=== PATIENT | female | born 1960 | race Caucasian/White ===

== ENCOUNTER 2017-04-06 00:11 | Observation (INO) ==
[2017-04-06] MEDS ORDERED: 0.9 % Sodium Chloride 1,000 ML IVC ONE (00:55)
[2017-04-06] MEDS ORDERED: Ondansetron 4 MG/2 ML VIAL IVP ONE (00:55)
[2017-04-06] MEDS ORDERED: *HR* Morphine 2 MG/ML SYRINGE IVP ONE (00:55)
--- NOTE | 2017-04-06 00:59 | Emergency Department Note ---
Disposition Clinical Impression: History of hiatal hernia Abdominal pain Qualifiers: Abdominal location: epigastric Qualified Code(s): R10.13 - Epigastric pain Chest pain Qualifiers: Chest pain type: unspecified Qualified Code(s): R07.9 - Chest pain, unspecified Disposition: Admitted As Inpatient Condition: Fair Abdominal Pain HPI - General Chief Complaint: ED Abdominal Pain Stated Complaint: abd pain// shortness of breath Time Seen by Provider: 04/06/17 00:45 Source: patient Mode of arrival: ambulatory Limitations: no limitations Nursing Notes Reviewed: Yes Vital Signs Reviewed: Yes - History of Present Illness HPI Narrative: 57 YO old female history of hypertension hyperlipidemia hiatal hernia presents for evaluation of epigastric abdominal pain. Notes that the pain started abruptly around 9:00 to 11:00 this evening. Notes that the pain has subsided since then. Patient thought it was her hernia. Patient noted some shortness of breath but correspond with the pain. Also has some midsternal chest pain. Patient's shortness breath has improved. No nausea or vomiting. No history of pancreatitis. No history of ulcers. No diarrhea or constipation. Patient does have a history of chronic back pain and notes pain in her back. Patient is status post ablation by [place] in her back and is recently off steroids. Patient also has been treating for a urinary tract infection. Pt Subjective Complaint: abdominal pain Onset (ago): day(s) Consistency: intermittent Pain Scale: 6 - Related Data Home Medications Medication Instructions Recorded Confirmed Acetaminophen [Tylenol] 500 mg PO Q6HR PRN 06/25/16 06/25/16 Amlodipine [Norvasc] 5 mg PO DAILY 06/25/16 06/25/16 Atorvastatin Calcium [Lipitor] 20 mg PO HS 06/25/16 06/25/16 Cyclobenzaprine [Flexeril] 5 - 10 mg PO HS 06/25/16 06/25/16 Diazepam [Valium] 10 mg PO BID 06/25/16 06/25/16 FLUoxetine HCl [Prozac] 80 mg PO DAILY 06/25/16 06/25/16 Hydrochlorothiazide 25 mg PO DAILY 06/25/16 06/25/16 Lisinopril [Zestril] 40 mg PO BID 06/25/16 06/25/16 Metoprolol XL (24 HR) Succ [Toprol 50 mg PO DAILY 06/25/16 06/25/16 XL] Omeprazole [PriLOSEC] 40 mg PO DAILY 06/25/16 06/25/16 Ranitidine HCl [Zantac] 150 mg PO BID PRN 06/25/16 06/25/16 Previous Rx's Medication Instructions Recorded Oxycodone HCl/Acetaminophen 1 each PO Q6H PRN #15 tablet 06/25/16 [Percocet 5-325 mg Tablet] Allergies Allergy/AdvReac Type Severity Reaction Status Date / Time codeine Allergy Palpitation Verified 06/25/16 07:56 s All systems ED: reviewed and negative except as stated. Constitutional: Reports: as per HPI. Denies: fever Eyes: Reports: as per HPI ENT ED: Reports: as per HPI Cardiovascular: Reports: as per HPI Respiratory: Reports: as per HPI Gastrointestinal: Reports: as per HPI, abdominal pain. Denies: nausea, vomiting Genitourinary: Reports: as per HPI Musculoskeletal: Reports: as per HPI Integumentary: Reports: as per HPI Neurological: Reports: as per HPI Psychiatric: Reports: as per HPI, anxiety Endocrine: Reports: as per HPI Hematological/Lymphatic: Reports: as per HPI Abdominal Pain PMH - Past Medical History Medical history: Reports: arthritis, GERD, hyperlipidemia, hypertension Female Surgical History: Reports: other Psychiatric history: Reports: anxiety, depression - Social History Smoking status: Never smoker Alcohol use: Reports: none Drug use: Reports: none Physical Exam - General Limitations: no limitations General appearance: alert, in no apparent distress - Head Head exam: atraumatic, normocephalic, normal inspection - Eye Eye exam: Present: normal appearance, EOMI - ENT ENT exam: normal exam, mucous membranes moist - Neck Neck exam: Present: normal inspection, trachea midline - Chest Chest inspection: Present: normal inspection, symmetric chest wall rise - Respiratory Respiratory exam: Present: normal lung sounds bilaterally. Absent: respiratory distress - Cardiovascular Cardiovascular exam: Present: regular rate, normal rhythm - Abdominal Exam Abdominal exam: Present: soft, Non-Tender. Absent: guarding, rebound - Extremities Exam Extremities exam: Present: normal inspection. Absent: pedal edema - Back Exam Back exam: Present: normal inspection. Absent: CVA tenderness (R), CVA tenderness (L) - Neurological Exam Neurological exam: Present: alert, oriented X3 - Skin Skin exam: Present: warm, dry, intact, normal color Course Course Narrative: seem examined. Patient's in no acute distress. Patient appears to be resting comfortably. Patient will get basic lab work including cardiac screening evaluation with a troponin, EKG, chest x-ray. - Reevaluation(s) Reevaluation #1: Patient seen and examined. Notes the chest pressure is back. Patient refused asprin. Time: 02:41 Reevaluation #2: Patient seen and examined. Patient initially noted that the second nitroglycerin did temporarily relieve her pain. Patient's getting a GI cocktail. Time: 03:15 Vital Signs Temperature 97.5 F L 04/06/17 00:13 Pulse Rate 56 04/06/17 00:13 Respiratory Rate 16 04/06/17 00:13 Blood Pressure 161/80 04/06/17 00:13 O2 Sat by Pulse Oximetry 99 04/06/17 00:13 Temperature 97.5 F L 04/06/17 00:13 Pulse Rate 53 04/06/17 03:15 Respiratory Rate 16 04/06/17 03:39 Blood Pressure 122/68 04/06/17 03:39 O2 Sat by Pulse Oximetry 96 04/06/17 03:15 Oxygen Delivery Oxygen Delivery Room Air Abdominal Pain - MDM Narrative Medical decision making narrative: 57 yo female with a history of tobacco use in the past, hypertension, hyperlipidemia presents for evaluation of epigastric abdominal pain as well as shortness of breath. Patient notes the pain was abrupt in onset and occurred about 9 to 11:00 tonight. Patient's pain did subside prior to presentation of the ER. Patient had nonischemic EKG as well as negative troponin. Patient then began to feel more chest pressure. Patient states that morphine does not help with her pain and requested Dilaudid. Patient refused the aspirin. Patient was given nitroglycerin without relief. Patient also noted some shortness of breath the time of pain. Patient does not have risk factors for pulmonary embolism. No history of pulmonary embolism. No lower leg swelling. No recent travel. Patient's history was reviewed and shows no acute cardiopulmonary evaluation. Patient does have episode of hiatal hernia. Given the patient's risk factors and the fact that she has not complete symptom control emergency department. Patient received temporary relief after 2 nitroglycerin. The patient will be admitted to the hospital service for further evaluation and monitoring. - Lab Data Lab results reviewed: Yes I reviewed the patient's lab results. Result diagrams: 04/06/17 01:00 04/06/17 01:00 Lab Results 04/06/17 04/06/17 04/06/17 Range/Units 01:00 01:00 01:00 WBC 10.5 (4.3-11.1) K/mcL RBC 4.67 (3.82-4.97) M/mcL Hgb 13.4 (11.5-15.4) g/dL Hct 41.4 (35.3-44.9) % MCV 88.7 (83.0-100.0) fL MCH 28.7 (28.0-33.3) pg MCHC 32.4 (31.6-35.5) g/dL RDW 13.1 (11.5-14.5) % Plt Count 313 (140-400) K/mcL MPV 9.9 (9.4-12.4) fL Immature Gran % 0.6 (0-4) % Seg Neutrophils % 80.7 % Lymphocytes % 13.6 % Monocytes % 4.4 % Eosinophils % 0.2 % Basophils % 0.5 % Neutrophils # 8.4 (1.6-8.9) K/mcL Lymphocytes # 1.4 (0.6-4.6) K/mcL Monocytes # 0.5 (0.0-1.3) K/mcL Eosinophils # 0.0 (0.0-0.6) K/mcL Basophils # 0.1 (0.0-0.2) K/mcL Sodium 138 (136-145) mEq/L Potassium 4.2 (3.5-4.5) mEq/L Chloride 103 (98-109) mEq/L Carbon Dioxide 23 (19-29) mEq/L BUN 17 (7-20) mg/dL Creatinine 0.89 (0.57-1.11) mg/dL Est GFR ( Amer) > 60 (> 60) Est GFR (Non-Af Amer) > 60 (> 60) BUN/Creatinine Ratio 19 (6-26) Glucose 113 H (70-99) mg/dL Calculated Osmolality 288 (280-300) Lactic Acid 0.9 (0.5-2.2) mmol/L Calcium 10.8 (8.6-10.8) mg/dL Total Bilirubin 1.0 (0.2-1.2) mg/dL Direct Bilirubin 0.4 (0.0-0.5) mg/dL Indirect Bilirubin 0.6 (0.0-1.2) mg/dL AST 174 H (5-34) Units/L ALT 91 H (0-55) Units/L Alkaline Phosphatase 121 (38-126) Units/L Troponin I (0-0.03) ng/mL Serum Total Protein 7.5 (6.0-8.3) g/dL Albumin 4.0 (3.5-5.0) g/dL Globulin 3.5 (2.4-3.5) g/dL Albumin/Globulin Ratio 1.1 (1.1-2.2) Lipase 45 (8-78) Units/L Urine Color (Yellow) Urine Clarity (Clear) Urine pH (5.0-8.0) pH Units Ur Specific [place]ez (1.010-1.025) Urine Protein (Neg-Trace) mg/dL Urine Glucose (UA) (Normal) mg/dL Urine Ketones (Negative) mg/dL Urine Blood (Negative) Urine Nitrite (Negative) Urine Bilirubin (Negative) Urine Urobilinogen (Normal) mg/dL Ur Leukocyte Esterase (Negative) Urine Microscopic RBC (0-3) per hpf Urine Microscopic WBC (0-3) per hpf Ur Squamous Epith Cells (None-Few) per lpf Urine Bacteria (None-Few) per hpf Hyaline Casts (None-Few) per lpf Urine Yeast Ur Culture Indicated? (NO) 04/06/17 04/06/17 Range/Units 01:00 01:22 WBC (4.3-11.1) K/mcL RBC (3.82-4.97) M/mcL Hgb (11.5-15.4) g/dL Hct (35.3-44.9) % MCV (83.0-100.0) fL MCH (28.0-33.3) pg MCHC (31.6-35.5) g/dL RDW (11.5-14.5) % Plt Count (140-400) K/mcL MPV (9.4-12.4) fL Immature Gran % (0-4) % Seg Neutrophils % % Lymphocytes % % Monocytes % % Eosinophils % % Basophils % % Neutrophils # (1.6-8.9) K/mcL Lymphocytes # (0.6-4.6) K/mcL Monocytes # (0.0-1.3) K/mcL Eosinophils # (0.0-0.6) K/mcL Basophils # (0.0-0.2) K/mcL Sodium (136-145) mEq/L Potassium (3.5-4.5) mEq/L Chloride (98-109) mEq/L Carbon Dioxide (19-29) mEq/L BUN (7-20) mg/dL Creatinine (0.57-1.11) mg/dL Est GFR ( Amer) (> 60) Est GFR (Non-Af Amer) (> 60) BUN/Creatinine Ratio (6-26) Glucose (70-99) mg/dL Calculated Osmolality (280-300) Lactic Acid (0.5-2.2) mmol/L Calcium (8.6-10.8) mg/dL Total Bilirubin (0.2-1.2) mg/dL Direct Bilirubin (0.0-0.5) mg/dL Indirect Bilirubin (0.0-1.2) mg/dL AST (5-34) Units/L ALT (0-55) Units/L Alkaline Phosphatase (38-126) Units/L Troponin I 0.00 (0-0.03) ng/mL Serum Total Protein (6.0-8.3) g/dL Albumin (3.5-5.0) g/dL Globulin (2.4-3.5) g/dL Albumin/Globulin Ratio (1.1-2.2) Lipase (8-78) Units/L Urine Color Yellow (Yellow) Urine Clarity Clear (Clear) Urine pH 6.5 (5.0-8.0) pH Units Ur Specific [place] 1.020 (1.010-1.025) Urine Protein Negative (Neg-Trace) mg/dL Urine Glucose (UA) Normal (Normal) mg/dL Urine Ketones Negative (Negative) mg/dL Urine Blood Negative (Negative) Urine Nitrite Negative (Negative) Urine Bilirubin Negative (Negative) Urine Urobilinogen Normal (Normal) mg/dL Ur Leukocyte Esterase Trace H (Negative) Urine Microscopic RBC 0-3 (0-3) per hpf Urine Microscopic WBC 0-3 (0-3) per hpf Ur Squamous Epith Cells Many H (None-Few) per lpf Urine Bacteria None Seen (None-Few) per hpf Hyaline Casts Few (None-Few) per lpf Urine Yeast Test Not Performed Ur Culture Indicated? YES A (NO) - Radiology Data Radiology results reviewed: Yes I reviewed the patient's radiology results. Chest X-Ray 04/06/17 00:57 IMPRESSION: No acute cardiac or pulmonary disease. D/ / Ephraim Montenegro MD / Ephraim Montenegro MD Interpreting Provider: Ephraim Montenegro MD - EKG Data EKG attestation: Yes I reviewed and interpreted this EKG. EKG shows normal: sinus rhythm Rate: bradycardia Rhythm: NSR Simpson/QRS: normal When compared to previous EKG there are: no significant changes Interpretation: no acute changes, unchanged when compared to prior tracing (date ) S.B.AFranky - S.B.AFranky Situation: Demographics Background: Presenting Complaint Assessment: Vital Signs, Course and respsone to treatment, Patient/Family Expectation, Pertinant Lab Results Recommendation: Barrier(s) to disposition, Recommendation based on pending studies, treatments, or consults S.B.A.Ly Report Given to: Dr. Harry DinhBElidaAFranky Repor Time: 03:10 Attestation Statement - Attestation Attestation: I, Endy Romero, examined this patient and my medical decision-making was reviewed with the DESIGN PRINTING MACHINE SETTER/PA/Advanced Practice Nurse/Resident Physician. I agree with the documented findings, disposition and treatment plan as described except to the extent set forth below. 57-year-old female presents with concerns of abdominal pain and midsternal chest pain. Patient reports the chest pain is a pressure that does not radiate. She reports associated shortness of breath and nausea with the pain. Patient denies a history of similar symptoms. Patient has a history of a hiatal hernia however this feels different from that pain. Patient states her initial episode lasted about 2 hours but had resolved prior to arrival. Patient started to have pain again in the emergency department. She was given nitroglycerin which improved her pain but also dropped her blood pressure. This improved after administration of IV fluids. Initial troponin negative. EKG showed sinus bradycardia with a rate of 54. Patient comfortable with the plan to be admitted to the hospital for continuation of care of chest pain to rule out ACS. Heart Score - Score History: Moderately Suspicious EKG: Normal Age: 45-65 Risk Factors: Equal/Greater than 3 risk factor or history of atherosclerotic disease Troponin: Less than normal limit HEART Score Total: 4
[2017-04-06 01:10] LABS: Basophils # 0.1 K/mcL (0.0-0.2); Basophils % 0.5 %; Eosinophils % 0.2 %; Hematocrit 41.4 % (35.3-44.9); Hemoglobin 13.4 g/dL (11.5-15.4); Immature Granulocytes % 0.6 % (0-4); Lymphocytes # 1.4 K/mcL (0.6-4.6); Lymphocytes % 13.6 %; Mean Corpuscular HGB Conc 32.4 g/dL (31.6-35.5); Mean Corpuscular Hemoglobin 28.7 pg (28.0-33.3); Mean Corpuscular Volume 88.7 fL (83.0-100.0); Mean Platelet Volume 9.9 fL (9.4-12.4); Monocytes # 0.5 K/mcL (0.0-1.3); Monocytes % 4.4 %; Neutrophils # 8.4 K/mcL (1.6-8.9); Platelet Count 313 K/mcL (140-400); Red Blood Count 4.67 M/mcL (3.82-4.97); Red Cell Distribution Width 13.1 % (11.5-14.5); Segmented Neutrophils % 80.7 %
[2017-04-06 01:26] LABS: Alanine Aminotransferase 91 Units/L (0-55); Albumin/Globulin Ratio 1.1 (1.1-2.2); Alkaline Phosphatase 121 Units/L (38-126); Aspartate Amino Transferase 174 Units/L (5-34); BUN/Creatinine Ratio 19 (6-26); Bilirubin,Direct 0.4 mg/dL (0.0-0.5); Bilirubin,Indirect 0.6 mg/dL (0.0-1.2); Blood Urea Nitrogen 17 mg/dL (7-20); Calcium 10.8 mg/dL (8.6-10.8); Carbon Dioxide 23 mEq/L (19-29); Chloride 103 mEq/L (98-109); Globulin 3.5 g/dL (2.4-3.5); Glucose 113 mg/dL (70-99); Lipase 45 Units/L (8-78); Osmolality,Calculated 288 (280-300); Potassium 4.2 mEq/L (3.5-4.5); Sodium 138 mEq/L (136-145); Total Protein 7.5 g/dL (6.0-8.3); eGFR For African Americans > 60 (> 60); eGFR For Non-African Americans > 60 (> 60)
[2017-04-06 01:38] LABS: Bilirubin,Urine Negative (Negative); Blood,Urine Negative (Negative); Clarity,Urine Clear (Clear); Color,Urine Yellow (Yellow); Glucose,Urine (UA) Normal (Normal); Ketones,Urine Negative (Negative); Leukocyte Esterase,Urine Trace (Negative); Nitrite,Urine Negative (Negative); PH,Urine 6.5 pH Units (5.0-8.0); Protein,Urine Negative (Neg-Trace); Urobilinogen,Urine Normal (Normal)
[2017-04-06 01:40] LABS: Bacteria,Urine None Seen per hpf (None-Few); RBC,Urine 0-3 per hpf (0-3); Squamous Epithelial Cell,Urine Many per lpf (None-Few)
[2017-04-06 01:50] LABS: Hyaline Casts,Urine Few per lpf (None-Few); WBC,Urine 0-3 per hpf (0-3)
[2017-04-06] MEDS ORDERED: Aspirin 81 MG TAB.CHEW PO ONE (02:13)
[2017-04-06] MEDS: Nitroglycerin 0.4 MG TAB.SUBL SL PRN ×2 (02:31→02:44)
[2017-04-06] MEDS ORDERED: GI Cocktail 40 ML EACH PO ONE (03:04)
[2017-04-06] MEDS ORDERED: 0.9 % Sodium Chloride 1,000 ML ONE (03:11)
[2017-04-06] MEDS: 0.9 % Sodium Chloride 1,000 ML IVC ONE ×2 (03:13→03:16)
[2017-04-06] MEDS ORDERED: *HR* Promethazine 25 MG/ML VIAL IVP PRN (07:36)
[2017-04-06] MEDS ORDERED: Naloxone 0.4 MG/ML INJ IVP PRN (07:36)
[2017-04-06] MEDS ORDERED: Acetaminophen 325 MG TABLET PO PRN (07:36)
--- NOTE | 2017-04-06 08:35 | Internal Med History&Physical ---
Date of Encounter: 04/06/17 Time of Encounter: 08:31 Assessment and Plan (1) Abdominal pain Current visit: Yes Status: Acute Acute epigastric abdominal pain. Could be related to gastritis. However patient has history of uncontrolled hypertension, and her symptoms are different from her usual episodes of hiatal hernia. She does have a positive family history of coronary artery disease. Will order cardiac stress test. We will also consult GI for further evaluation which may include upper GI endoscopy. Will continue PPI. Keep nothing by mouth for now. Moderate risk for complications. Qualifiers: Abdominal location: epigastric Qualified Code(s): R10.13 - Epigastric pain (2) History of hiatal hernia Current visit: Yes Status: Chronic Continue home medications for this condition. Supportive care. Keep nothing by mouth for now. (3) Essential hypertension Current visit: Yes Status: Chronic Currently well controlled. Monitor blood pressure and resume home medications. Internal Medicine - H&P: HPI Chief complaint: Epigastric abdominal pain Admitted From: Emergency Dept Plans for Post Hospital Care: Home History of present illness: Ms. Champagne is a 57 year old female patient with history of essential hypertension, hypercholesterolemia presented to the ER with epigastric abdominal pain. She does have a history of hiatal hernia and has had multiple EGDs in the past and esophageal dilation procedures. She began to have this new pain yesterday. It is located in the epigastric region and progressively getting worse. She has been given nitroglycerin, morphine and GI cocktail with no improvement in her symptoms. She says there was some shortness of breath associated with that along with diaphoresis. Also has nausea but no vomiting. No relation to food. She has been scheduled to undergo upper GI endoscopy next week. She has never had any prior cardiac workup. No fever chills or night sweats. No pedal edema. Past Med Surg Social Fam HX - Past Medical History Medical history: arthritis, GERD, hyperlipidemia, hypertension Psychiatric history: anxiety, depression - Past Surgical History Surgical History: cholecystectomy, hysterectomy, MARTINA/BSO - Social History Smoking Status: Never smoker Smokeless Tobacco Status: No Alcohol use: none Drug use: none - Additional Family History Additional family history: Family history of heart disease. Internal Medicine - H&P: Meds Acetaminophen [Tylenol] 500 mg PO Q6HR PRN 06/25/16 [History] Amlodipine [Norvasc] 5 mg PO DAILY 06/25/16 [History] Atorvastatin Calcium [Lipitor] 20 mg PO HS 06/25/16 [History] Cyclobenzaprine [Flexeril] 5 - 10 mg PO HS 06/25/16 [History] Diazepam [Valium] 10 mg PO BID 06/25/16 [History] FLUoxetine HCl [Prozac] 80 mg PO DAILY 06/25/16 [History] Hydrochlorothiazide 25 mg PO DAILY 06/25/16 [History] Lisinopril [Zestril] 40 mg PO BID 06/25/16 [History] Metoprolol XL (24 HR) Succ [Toprol XL] 50 mg PO DAILY 06/25/16 [History] Omeprazole [PriLOSEC] 40 mg PO DAILY 06/25/16 [History] Oxycodone HCl/Acetaminophen [Percocet 5-325 mg Tablet] 1 each PO Q6H PRN #15 tablet 06/25/16 [Rx] Ranitidine HCl [Zantac] 150 mg PO BID PRN 06/25/16 [History] Allergies codeine Allergy (Verified 06/25/16 07:56) Palpitations All Systems PM: A 10-system review of systems was performed and is negative for pertinent findings except as documented above in the HPI. - Constitutional Constitutional: no chills, no fever(s), no night sweats - EENT Eyes: no change in vision, no discharge, no pain, no photophobia Ears: no ear discharge, no ear pain, no tinnitus Nose, mouth and throat: no dysphagia, no nasal discharge, no neck pain, no sore throat - Cardiovascular Cardiovascular ROS IM: no chest pain, no diaphoresis, no dyspnea, no lightheadedness, no palpitations, no syncope - Respiratory Respiratory: no cough, no dyspnea, no wheezing, no excessive phlegm production - Gastrointestinal Gastrointestinal: abdominal pain, nausea - Genitourinary Genitourinary: no change in urinary stream, no dysuria, no flank pain, no hematuria - Musculoskeletal Musculoskeletal ROS IM: no numbness, no tingling - Integumentary Integumentary IM: no rash, no unusual bruising - Neurological Neurological ROS: no confusion, no convulsions, no focal weakness, no numbness, no tingling, no tremor(s) - Hematologic/Lymphatic Hematologic/Lymphatic: no easy bruising - Constitutional Vitals: Temp Pulse Resp BP Pulse Ox 97.7 F 55 16 119/67 99 04/06/17 07:06 04/06/17 07:06 04/06/17 07:06 04/06/17 07:06 04/06/17 07:06 General appearance: Present: cooperative, A&O X 3, answers questions appropriately - Respiratory Respiratory exam: Present: CTAB. Absent: accessory muscle use, rales, rhonchi, wheezes - Cardiovascular Cardiovascular exam: Present: RRR, +S1, +S2. Absent: diastolic murmur, gallop, rubs, systolic murmur - GI/Abdominal GI/Abdominal exam: Present: normal bowel sounds, soft, tenderness (Epigastric), no peritoneal signs. Absent: distended - Extremities Exam Extremities exam: Present: warm, radial pulses palpable and symetrical. Absent : calf tenderness, cyanotic, pedal edema - Neurological Exam Neurological exam: Present: CN II-XII intact, oriented X3, no focal deficits. Absent: facial droop, speech deficit - Skin Skin exam: Present: dry, intact Internal Med - H&P Results - Labs CBC & Chem 7: 04/06/17 01:00 04/06/17 01:00 - Impressions Impressions Chest X-Ray 04/06/17 00:57 IMPRESSION: No acute cardiac or pulmonary disease. D/ / Ephraim Montenegro MD / Ephraim Montenegro MD Interpreting Provider: Ephraim Montenegro MD - Attending Attestation This document has been at least partially created by [employer] recognition technology by Dr. Garrido. Errors in grammar, wording or other phrases may exist. If errors are found after the documentation is signed, they will be addressed individually in the addendum section of this document when appropriate.
--- NOTE | 2017-04-06 08:39 | Gastroenterology Consult Note ---
<Meagan Vidal - Last Filed: 04/06/17 10:59> Date of Encounter: 04/06/17 Time of Encounter: 10:35 - Assessment and plan (1) Chest pain Current Visit: Yes Status: Acute Assessment and plan: Stress test evaluation is being ordered by attending. If negative, consider in patient EGD evaluation. Continue PPI. Qualifiers: Chest pain type: unspecified Qualified Code(s): R07.9 - Chest pain, unspecified (2) Elevated LFTs Current Visit: Yes Status: Acute Assessment and plan: New finding this admission, AST > ALT. Patient is post-cholecystectomy, moderate elevation may be due to recent atb therapy for UTI (bactrim). R/O liver disease. US liver, monitor LFTs. - Time Spent With Patient Total time spent is greater than 50% in coordination of care (as documented) at patient's floor/unit and/or counseling patient: less than 15 minutes GI History of Present Illness - Data of Consult Patient: known to practice within the last 3 years Consult date: 04/06/17 Requesting Physician: Eryn Lancaster CNP - Consult Narrative Reason for consult: epigastric abd pain History of present illness: Ms. Champagne is a 57 year old female with a PMH of history of tobacco use in the past, HTN, HLD, vocal cord dysfunction, dysphagia and GERD presents for evaluation of epigastric abdominal pain as well as shortness of breath. Patient notes the pain was abrupt in onset and occurred about 9 to 11:00 tonight. Patient's pain did subside prior to presentation of the ER. Patient had nonischemic EKG as well as negative troponin. Patient then began to feel more chest pressure. Patient states that morphine does not help with her pain and requested Dilaudid. Patient refused the aspirin. Patient was given nitroglycerin without relief. Patient also noted some shortness of breath the time of pain. Patient does not have risk factors for pulmonary embolism. No history of pulmonary embolism. No lower leg swelling. No recent travel. Patient's history was reviewed and shows no acute cardiopulmonary evaluation. A stress test is planned. Patient does have history of mild to moderate hiatal hernia and mild to moderate acid reflux as evidenced on recent swallow study. Given the patient's risk factors and the fact that she has not complete symptom control emergency department. Patient received temporary relief after 2 nitroglycerin. The patient will be admitted to the hospital service for further evaluation and monitoring. Patient was recently seen in follow up in GI clinic (04/04/17) with similar complaints as prior office visits, specifically, dysphagia and left sided neck pain. She was scheduled for repeat EGD with dilation with Dr. Lamb 04/14/17. Her last Cscope and EGD were in 2016. Patient states that last PM she was [place] the [employer] when symptoms presented, very quick onset, constant discomfort in the epigastric area, denies radiation to other locations, denies N/V or change in bowel habits, only other presenting symptoms were diaphoresis and dyspnea. She states pain continues at present time , but is less intense. No recent increase in GERD symptoms admitted. Evaluation was cut short d/t arrival of transport for patient scheduled stress testing. Of note, patient displayed elevated LFTs at time of admission, AST > ALT, she was recently on Bactrim for UTI. She is post-karine, liver US ordered. Colonoscopy: 2016- [facility] - multiple polyps 6-10mm, repeat 3 yrs EGD: 2016- [facility] - dilation - small hh Past Med Surg Social Fam HX - Past Medical History Medical history: arthritis, GERD, hyperlipidemia, hypertension Psychiatric history: anxiety, depression - Past Surgical History Surgical History: cholecystectomy, hysterectomy, MARTINA/BSO - Social History Smoking Status: Never smoker Smokeless Tobacco Status: No Alcohol use: none Drug use: none - Gastrointestinal NSAID use: None Anticoagulation Use: None Number of BM Per Day: daily Gastrointestinal: Present: abdominal pain - Constitutional Constitutional: as per HPI - EENT Eyes: as per HPI Ears: Present: as per HPI Nose, mouth and throat: Present: dysphagia Additional Comment: L sided neck pain - Cardiovascular Cardiovascular ROS: Present: chest pain - Respiratory Respiratory IM: Present: dyspnea - Neurological ROS Neurological GI: Present: as per HPI - Hematologic/Lymphatic Hematologic/Lymphatic pediatric: Present: as per HPI - Musculoskeletal Musculoskeletal ROS GI: Present: as per HPI - Integumentary Integumentary GI: Present: as per HPI - Psychiatric ROS Psychiatric GI: Present: as per HPI - Endocrine Endocrine IM: Present: as per HPI - Constitutional Vitals: Temp Pulse Resp BP Pulse Ox 97.7 F 55 16 119/67 99 04/06/17 07:06 04/06/17 07:06 04/06/17 07:06 04/06/17 07:06 04/06/17 07:06 General appearance: Present: cooperative, A&O X 3, no acute distress, answers questions appropriately - Head Head exam: Present: atraumatic, normocephalic - Eye Eye exam: Present: normal appearance, sclera anicteric - ENT ENT exam: Present: mucous membranes moist - Neck Neck exam general surgery: Present: normal inspection, trachea midline - Respiratory Respiratory exam: Present: CTAB - Cardiovascular Cardiovascular exam: Present: RRR, +S1, +S2 - GI/Abdominal GI/Abdominal exam: Present: soft, tenderness - Rectal Rectal exam: Present: deferred - Extremities Exam Extremities exam: Present: warm - Neurological Exam Neurological exam: Present: no focal deficits - Psychiatric Psychiatric exam: Present: normal affect, normal mood - Skin Skin exam: Present: dry, intact, normal color, warm Results - Labs CBC & Chem 7: 04/06/17 01:00 04/06/17 01:00 Labs: Last Result Calcium 10.8 mg/dL (8.6-10.8) 04/06/17 01:00 Troponin I 0.00 ng/mL (0-0.03) 04/06/17 01:00 Entire Visit Hgb 13.4 g/dL (11.5-15.4) 04/06/17 01:00 Hct 41.4 % (35.3-44.9) 04/06/17 01:00 Total Bilirubin 1.0 mg/dL (0.2-1.2) 04/06/17 01:00 AST 174 Units/L (5-34) H 04/06/17 01:00 ALT 91 Units/L (0-55) H 04/06/17 01:00 Lipase 45 Units/L (8-78) 04/06/17 01:00 Consult Discharge Plan - Plan Referrals: Corrina Howard MD [Primary Care Provider] - <Gustabo Lamb - Last Filed: 04/06/17 16:39> Date of Encounter: 04/06/17 Time of Encounter: 17:00 - Time Spent With Patient Total time spent is greater than 50% in coordination of care (as documented) at patient's floor/unit and/or counseling patient: GI History of Present Illness - Data of Consult Requesting Physician: Eryn Lancaster CNP - Consult Narrative History of present illness: Ms. Champagne is a 57 year old female - Constitutional Vitals: Temp Pulse Resp BP Pulse Ox 97.7 F 52 16 116/75 100 04/06/17 15:53 04/06/17 15:53 04/06/17 15:53 04/06/17 15:53 04/06/17 15:53 Results - Labs CBC & Chem 7: 04/06/17 01:00 04/06/17 01:00 Labs: Last Result Calcium 10.8 mg/dL (8.6-10.8) 04/06/17 01:00 Troponin I 0.00 ng/mL (0-0.03) 04/06/17 08:21 Entire Visit Hgb 13.4 g/dL (11.5-15.4) 04/06/17 01:00 Hct 41.4 % (35.3-44.9) 04/06/17 01:00 Total Bilirubin 1.0 mg/dL (0.2-1.2) 04/06/17 01:00 AST 174 Units/L (5-34) H 04/06/17 01:00 ALT 91 Units/L (0-55) H 04/06/17 01:00 Lipase 45 Units/L (8-78) 04/06/17 01:00 - Impressions Impressions Liver Ultrasound 04/06/17 11:30 IMPRESSION: 1. Hepatic steatosis. 2. Status post cholecystectomy. No biliary ductal dilatation. D/ / Gualberto Higuera MD / Gualberto Higuera MD Interpreting Provider: Gualberto Higuera MD - Attending Attestation I examined this patient and my medical decision-making was reviewed with the [employer]/PA/Advanced Practice Nurse/Resident Physician. I agree with the documented findings, disposition and treatment plan as described except to the extent set forth below. Will do upper GI
[2017-04-06] MEDS ORDERED: EPHEDrine 50 MG/ML VIAL IVP ONE (09:09)
[2017-04-06] MEDS ORDERED: Regadenoson 0.4 MG/5 ML SYRINGE IVP ONE (10:11)
[2017-04-06] MEDS: Pantoprazole 40 MG VIAL IVP SCH ×2 (13:08→20:47)
[2017-04-06] MEDS ORDERED: Simethicone 40 MG/0.6 ML MLS IR ONE (14:10)
--- NOTE | 2017-04-06 14:52 | Nuclear Medicine Stress Report ---
Regadenoson Nuclear Stress Name: Devorah Champagne Date of Study: 04/06/2017 Date: 1960 Ht: 66.0 in Medical Record#: [id number] Age: 57 Wt: 220.0 lb Gender: Female Order #: [id number] Location: [facility] OP Room: [facility] Supervising Provider: Lee Ann Bryant CNP Reading Physician: Marco Arreaga DO, FACC, FASCA Ordering Physician: Eryn Lancaster CNP Primary Care Physician: Corrina Howard MD Stress Technologist: Krystina Buckner CADMIUM PLATER, CCT [place] Trimmer: Kelvin Em Indications: Chest Pain Impression: Pharmacologic stress ECG is non diagnostic for ischemia due to submaximal HR. Gated EF > 70%. Small sized, mild intensity, fixed apical lateral defect with normal wall. Findings c/w artifact. Perfusion imaging was negative for ischemia or infarct. History: Hypertension Hypercholesteremia History of Smoking Stress Test Summary: Stress Test Type: Pharmacologic Regadenoson 0.4mg/5ml given IV Baseline Information: Initial Heart Rate: 51 Blood Pressure: 118/64 Stress Information: Test Terminated Due to (primary): As per protocol Maximum Blood Pressure: 116/62 Maximum Heart Rate: 72 Percent Maximum Heart Rate Achieved: 44 Double Product: 8352 METS Reached: 10 Symptoms: No chest symptoms Nuclear Summary: SPECT myocardial perfusion imaging using Tc99m Sestamibi given intravenously was performed at rest and following cardiac stress testing. The resting images were obtained following initial dose of 10.0 mCi. Following stress an additional dose of 30.5 mCi was given at peak exercise or 30 seconds post regadenoson infusion. Medication Given: Time Medication Dose Units Route Findings: Stress Note * Sinus bradycardia. * No baseline arrhythmias were noted. * Pharmacologic stress ECG is non diagnostic for ischemia due to submaximal HR. * No arrhythmias were noted during stress. * Patient had no chest pain during stress. * Normal hemodynamic responses to pharmacologic stress. Study Quality * Study quality is average. Gated EF > 70% * Gated EF > 70%. Left Ventricle * The left ventricle is not dilated. LVEDV = 67 mL. * Normal wall motion. Apical Perfusion Rest * The apical lateral segment shows a mild reduction in perfusion. Apical Perfusion Stress * The apical lateral segment shows a mild reduction in perfusion. TID * No evidence of transient ischemic dilatation. TID ratio = 1.14. Lung Uptake * There is no evidence of increase lung uptake. Updated by Marco Arreaga DO, FACEleonora, AMY, CASIE on 04/06/2017 2:45:50 PM electronically signed on 04/06/2017 2:46:48 PM with status of Final
--- NOTE | 2017-04-06 15:26 | Electrocardiograph Report ---
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
[2017-04-06] MEDS: diazePAM 10 MG TABLET PO SCH (20:47)
[2017-04-06] MEDS: Pregabalin 75 MG CAPSULE PO SCH (20:47)
[2017-04-06] MEDS: Lisinopril 20 MG TABLET PO SCH (20:48)
[2017-04-07] MEDS: *HR* HYDROcodone/Acet 5/325 mg TABLET PO PRN ×2 (00:42→19:03)
[2017-04-07] MEDS: Pantoprazole 40 MG VIAL IVP SCH ×2 (05:11→18:55)
[2017-04-07 05:49] LABS: Chol/HDL Ratio 2.5 (0-4.9)
[2017-04-07] MEDS: hydroCHLOROthiazide 25 MG TABLET PO SCH (09:00)
[2017-04-07] MEDS: Metoprolol XL (24 HR) Succ 50 MG TAB.ER.24H PO SCH (09:00)
[2017-04-07] MEDS: Fluticasone Propionate Nasal 50 MCG/SPRAY BOTTLE NS SCH (09:00)
[2017-04-07] MEDS: diazePAM 10 MG TABLET PO SCH ×2 (09:00→21:39)
[2017-04-07] MEDS: Pregabalin 75 MG CAPSULE PO SCH ×2 (09:00→21:37)
[2017-04-07] MEDS: FLUoxetine 20 MG CAPSULE PO SCH (09:00)
[2017-04-07] MEDS: Cholecalciferol (D-3) 1,000 UNIT TABLET PO SCH (09:00)
[2017-04-07] MEDS: Lisinopril 20 MG TABLET PO SCH ×2 (09:00→21:39)
[2017-04-07] MEDS: amLODIPine 5 MG TABLET PO SCH (09:00)
--- NOTE | 2017-04-07 09:35 | Gastroenterology Progress Note ---
Date of Encounter: 04/07/17 - Assessment and plan (1) Chest pain Current Visit: Yes Status: Acute Assessment and plan: Stress testing negative for cardiac etiology. UGI ordered by Dr. Lamb to r/o possible hiatal hernia as cause for patient symptoms. She has elev LFTs, r/o CBD obstruction/stone as source via EUS with possible ERCP. Qualifiers: Chest pain type: unspecified Qualified Code(s): R07.9 - Chest pain, unspecified (2) Elevated LFTs Current Visit: Yes Status: Acute Assessment and plan: New finding this admission, AST > ALT. Patient is post-cholecystectomy, ? CBD stone? EUS with possible ERCP being planned. US showed hepatic steatosis with coarse echotexture, liver w/u ordered. (3) Dysphagia Current Visit: Yes Status: Chronic Qualifiers: Dysphagia type: unspecified Qualified Code(s): R13.10 - Dysphagia, unspecified (4) Abdominal pain Current Visit: Yes Status: Acute Assessment and plan: UGI ordered by Dr. Lamb to r/o possible hiatal hernia as cause for patient symptoms. She has elev LFTs, r/o CBD obstruction/stone as source via EUS with possible ERCP. Qualifiers: Abdominal location: epigastric Qualified Code(s): R10.13 - Epigastric pain - Time Spent With Patient Total time spent is greater than 50% in coordination of care (as documented) at patient's floor/unit and/or counseling patient: - Constitutional Vitals: Temp Pulse Resp BP Pulse Ox 97.5 F L 50 16 110/66 100 04/07/17 07:39 04/07/17 07:39 04/07/17 07:39 04/07/17 07:39 04/07/17 07:39 General appearance: Present: cooperative, A&O X 3, no acute distress, answers questions appropriately Results - Labs CBC & Chem 7: 04/06/17 01:00 04/06/17 01:00 Labs: Last Result Calcium 10.8 mg/dL (8.6-10.8) 04/06/17 01:00 Troponin I 0.00 ng/mL (0-0.03) 04/06/17 08:21 Triglycerides 91 mg/dL (< 150) 04/07/17 04:54 Entire Visit Hgb 13.4 g/dL (11.5-15.4) 04/06/17 01:00 Hct 41.4 % (35.3-44.9) 04/06/17 01:00 Total Bilirubin 1.0 mg/dL (0.2-1.2) 04/06/17 01:00 AST 174 Units/L (5-34) H 04/06/17 01:00 ALT 91 Units/L (0-55) H 04/06/17 01:00 Lipase 45 Units/L (8-78) 04/06/17 01:00 - Impressions Impressions Liver Ultrasound 04/06/17 11:30 IMPRESSION: 1. Hepatic steatosis. 2. Status post cholecystectomy. No biliary ductal dilatation. D/ / Gualberto Higuera MD / Gualberto Higuera MD Interpreting Provider: Gualberto Higuera MD Consult Discharge Plan - Plan Referrals: Corrina Howard MD [Primary Care Provider] -
[2017-04-07 10:56] LABS: Hepatitis B Surface Antigen Nonreactive (Nonreactive)
--- NOTE | 2017-04-07 14:21 | Internal Med Progress Note ---
Date of Encounter: 04/07/17 Time of Encounter: 09:25 - Assessment and plan (1) Abdominal pain Current Visit: Yes Status: Acute Assessment and plan: Patient reports that on Tuesday she had sudden onset shortness of breath and epigastric pain that doubled her over. She said is the worst pain she is ever had it lasted for 2 hours and has resolved. She says that she has a 2 year long history of hiatal hernia and abdominal pain. The hernia was diagnosed as well as GERD with a scope 2 years ago. She reports that she has had multiple scopes and has had her esophagus dilated here. She denies nausea or vomiting she said she did get diaphoretic with the pain it radiates into her back. She does have chronic back pain that she sees pain management 4. She has been given an ice pack. Patient had an ultrasound of the liver. It showed hepatic steatosis, patient is status post cholecystectomy and there is no biliary ductal dilatation. Patient had upper GI series this morning. Esophagus was normal and no evidence of stricture. There is normal peristalsis. There appears to be no evidence of ulceration in the stomach. The duodenum is normal with no evidence of ulceration or mass. Patient had been nothing by mouth. She still having further testing this afternoon. Remains nothing by mouth. Abdomen is rounded, soft, tender only in epigastric area. Patient only mentions tenderness when questioned. Bowel sounds are present. She denies any nausea, vomiting, or diarrhea. GI is on board and following patient will wait for their continued recommendations. Qualifiers: Abdominal location: epigastric Qualified Code(s): R10.13 - Epigastric pain (2) History of hiatal hernia Current Visit: Yes Status: Chronic Assessment and plan: Hiatal hernia diagnosed by scope approximately 2 years ago. Patient remains nothing by mouth Plan as above (3) Essential hypertension Current Visit: Yes Status: Chronic Assessment and plan: Chronic. Well controlled. Continue home medications. (4) Elevated LFTs Current Visit: Yes Status: Acute Assessment and plan: Transaminases elevated. We will continue to monitor. Labs in the a.m. - Time Spent With Patient less than 15 minutes - Subjective Interval history: [facility] and experiencing sudden onset epigastric pain with shortness of breath. Has a history of hiatal hernia with pain and GERD. She does take omeprazole at home. She said that she had a scope 2 years ago which diagnosed both of these things after a long period of problems and pain. She said this pain was the worst that she ever experience in a double her over. She said it lasted 2 hours and resolved when she was in the emergency room. She says that she has had her esophagus dilated several times here. She denied nausea or vomiting at the time, and she reports diaphoresis with radiation of pain to her back with this episode. She has chronic back pain and sees pain management, Dr. Song for this. Primary nurse spoke with procedure nurses who said the patient should have nothing that might alter the test for pain. I had offered her Toradol for the pain, however due to the risk of bleeding and and stayed, I did hold the medication. She was requesting her normal Percocet from home. We did explain to her that she is nothing by mouth. Patient was agreeable. She is very drowsy , reports pain when asked. - Constitutional Vitals: Temp Pulse Resp BP Pulse Ox 98.2 F 61 16 118/71 98 04/07/17 11:59 04/07/17 11:59 04/07/17 11:59 04/07/17 11:59 04/07/17 11:59 General appearance: Present: cooperative, A&O X 3, no acute distress, answers questions appropriately - Head Head exam: Present: normal inspection - Eye Eye exam: Present: normal appearance, conjuntiva pink. Absent: nystagmus - ENT ENT exam: Present: mucous membranes moist, normal exam - Neck Neck exam general surgery: Present: normal inspection. Absent: lymphadenopathy , tenderness - Respiratory Respiratory exam: Present: decreased breath sounds. Absent: rales, rhonchi, wheezes - Cardiovascular Cardiovascular exam: Present: RRR, +S1, +S2. Absent: diastolic murmur, systolic murmur - GI/Abdominal GI/Abdominal exam: Present: normal bowel sounds, soft, tenderness. Absent: distended, hepatomegaly - Extremities Exam Extremities exam: Present: normal capillary refill, normal inspection, warm, radial pulses palpable and symetrical. Absent: calf tenderness, pedal edema - Neurological Exam Neurological exam: Present: alert, oriented X3, no focal deficits, strengths equal and symetr throughout. Absent: facial droop, speech deficit Internal Medicine: Result - Labs CBC & Chem 7: 04/06/17 01:00 04/06/17 01:00 - Impressions Impressions Liver Ultrasound 04/06/17 11:30 IMPRESSION: 1. Hepatic steatosis. 2. Status post cholecystectomy. No biliary ductal dilatation. D/ / Gualberto Higuera MD / Gualberto Higuera MD Interpreting Provider: Gualberto Higuera MD Upper GI Series 04/07/17 07:00 IMPRESSION: 1. The esophagus demonstrates no evidence of a stricture, reflux, or dysmotility. 2. Normal stomach and duodenum. D/ : / 04/07/2017 10:42:23 Maxime Hawley MD / Elle Tanner Interpreting Provider: Maxime Hawley MD Consult Discharge Plan - Plan Referrals: Corrina Howard MD [Primary Care Provider] -
--- NOTE | 2017-04-07 15:24 | Anesthesia Evaluation PreOp ---
Date of Encounter: 04/07/17 Time of Encounter: 15:21 - Past History Planned Operation: EUS with poss ercp Cardiac History: HTN, Hyperlipidemia, Other (nuc stress, nondx due to submax hr , ef 70. 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 History: Other (anxiety, depression) Other Medical History: GERD Anesthesia History: No Prior Anesthetic Complications, Past Anesthesia Alcohol Use: none Drug use: none Medications and Allergies Acetaminophen [Tylenol] 500 mg PO Q6HR PRN 06/25/16 [History] Atorvastatin Calcium [Lipitor] 20 mg PO HS 06/25/16 [History] FLUoxetine HCl [Prozac] 80 mg PO DAILY 06/25/16 [History] Lisinopril [Zestril] 40 mg PO BID 06/25/16 [History] Metoprolol XL (24 HR) Succ [Toprol XL] 50 mg PO DAILY 06/25/16 [History] Ranitidine HCl [Zantac] 150 mg PO BID PRN 06/25/16 [History] amLODIPine [Norvasc] 5 mg PO DAILY 06/25/16 [History] diazePAM [Valium] 10 mg PO BID 06/25/16 [History] hydroCHLOROthiazide [Hydrochlorothiazide] 25 mg PO DAILY 06/25/16 [History] Albuterol Sulfate [Proair Hfa] 2 puff IH Q4H PRN 04/06/17 [History] Azelastine HCl [Astepro] 1 spray NS DAILY 04/06/17 [History] Chlorhexidine Gluconate [Peridex] 5 ml MM DAILY 04/06/17 [History] Cholecalciferol (D-3) [Vitamin D] 1,000 unit PO DAILY 04/06/17 [History] Fluticasone Propionate Nasal [Flonase] 2 spray NS DAILY 04/06/17 [History] HYDROcodone/Acet 5/325 mg [[place] 5-325 mg] 1 tab PO Q6H PRN 04/06/17 [History] MethylPREDNISolone [MethylPREDNISolone Dose Pack] 4 mg PO AD 04/06/17 [History] Methylphenidate HCl [Ritalin LA] 40 mg PO QAM 04/06/17 [History] Pregabalin [Lyrica] 150 mg PO BID 04/06/17 [History] Allergies codeine Allergy (Verified 06/25/16 07:56) Palpitations - Meds/Allergy Pre-op Review Medications Reviewed: Yes Allergies Reviewed: Yes Beta Blockers on Current Med List: Yes If Beta Blockers taken, Date/Time (Last Dose taken): metoprolol xl not given today re: dick Anesthesia Results - Labs 04/06/17 01:00 04/06/17 01:00 - Imaging EKG: report reviewed (sb) Anesthesia Exam Vital Signs/O2 Sat/Glucose, Most Current Temp Pulse Resp BP Pulse Ox 04/07/17 11:59 98.2 F 61 16 118/71 98 Height: 1.68 Weight: 100 NPO (# of Hours): >8 - HEENT Pupil (Motor): Pupils equal, EOMI Mallampati: III Teeth: Edentulous Denture Type: Upper: Complete, Lower: Complete Oral Opening: Greater than 3 - SLIPPER MAKER LOC: Oriented SLIPPER MAKER Motor: Normal RUE, Normal LUE, Normal RLE, Normal LLE, Normal Face SLIPPER MAKER Sensory: Normal: RUE, LUE, RLE, LLE, Face - Cardiac Rhythm: Regular Murmur: None - Pulmonary Breath Sounds: bilateral Clear Respiratory Effort: Symmetrical Anesthesia Assess/Plan ASA Score: 2 Modified Arlet Scale for Level of Consciousness: Cooperative, oriented, and tranquil Anesthetic Plan: General Monitoring Plan: Standard Monitors Recovery Plan: PACU
[2017-04-07] MEDS ORDERED: *HR* FentaNYL (PF) 100 MCG/2 ML VIAL ONE ×2 (15:29→15:30)
--- NOTE | 2017-04-07 17:12 | Procedure Note ---
Date of procedure: 04/07/17 Pre-op diagnosis: AbNormal LFTs and the epigastric pain Procedure: EUS: CBD about 6 mm in size with no filling defect.
--- NOTE | 2017-04-07 17:18 | Anesthesia Evaluation Post Op ---
Date of Encounter: 04/07/17 Time of Encounter: 17:15 - Vital Signs Vital Signs: VSS - Lungs Lungs: Clear Ascult./Percussion - Airway Airway: Non-obstructed - Cardiovascular Regular Rate, Baseline Rhythm - Mental Status Mental Status: Alert & Oriented, Answers Appropriately - Nausea Vomiting Nausea Vomiting: Not Present - Hydration Hydration: Tolerates oral liquids - Discharge PostOp Status: Transfer Patient to floor
[2017-04-07 18:22] LABS: Basophils # 0.1 K/mcL (0.0-0.2); Basophils % 0.7 %; Eosinophils # 0.2 K/mcL (0.0-0.6); Eosinophils % 2.2 %; Hematocrit 38.6 % (35.3-44.9); Hemoglobin 12.4 g/dL (11.5-15.4); Immature Granulocytes % 0.3 % (0-4); Lymphocytes # 1.4 K/mcL (0.6-4.6); Lymphocytes % 18.3 %; Mean Corpuscular HGB Conc 32.1 g/dL (31.6-35.5); Mean Corpuscular Hemoglobin 28.7 pg (28.0-33.3); Mean Corpuscular Volume 89.4 fL (83.0-100.0); Mean Platelet Volume 10.6 fL (9.4-12.4); Monocytes # 0.2 K/mcL (0.0-1.3); Neutrophils # 5.6 K/mcL (1.6-8.9); Platelet Count 202 K/mcL (140-400); Red Blood Count 4.32 M/mcL (3.82-4.97); Segmented Neutrophils % 75.5 %
[2017-04-07 18:34] LABS: BUN/Creatinine Ratio 28 (6-26); Blood Urea Nitrogen 18 mg/dL (7-20); Calcium 9.2 mg/dL (8.6-10.8); Carbon Dioxide 21 mEq/L (19-29); Chloride 110 mEq/L (98-109); Glucose 81 mg/dL (70-99); Osmolality,Calculated 293 (280-300); Potassium 3.9 mEq/L (3.5-4.5); Sodium 141 mEq/L (136-145); eGFR For African Americans > 60 (> 60); eGFR For Non-African Americans > 60 (> 60)
[2017-04-08] MEDS: Pantoprazole 40 MG VIAL IVP SCH (06:09)
[2017-04-08 07:39] VITALS: BP 125/78
[2017-04-08] MEDS: diazePAM 10 MG TABLET PO SCH (08:15)
[2017-04-08] MEDS: hydroCHLOROthiazide 25 MG TABLET PO SCH (08:15)
[2017-04-08] MEDS: FLUoxetine 20 MG CAPSULE PO SCH (08:16)
[2017-04-08] MEDS: amLODIPine 5 MG TABLET PO SCH (08:16)
[2017-04-08] MEDS: Metoprolol XL (24 HR) Succ 50 MG TAB.ER.24H PO SCH (08:16)
[2017-04-08] MEDS: Lisinopril 20 MG TABLET PO SCH (08:16)
[2017-04-08] MEDS: Pregabalin 75 MG CAPSULE PO SCH (08:16)
[2017-04-08] MEDS: Cholecalciferol (D-3) 1,000 UNIT TABLET PO SCH (08:17)
[2017-04-08] MEDS: Fluticasone Propionate Nasal 50 MCG/SPRAY BOTTLE NS SCH (08:18)
[2017-04-08 08:50] LABS: Hepatitis A Antibody IgM Nonreactive (Nonreactive); Hepatitis B Core IgM Nonreactive (Nonreactive); Hepatitis C Virus Antibody Nonreactive (Nonreactive)
--- NOTE | 2017-04-08 09:50 | Discharge Summary ---
Date of Encounter: 04/08/17 Time of Encounter: 08:30 - Discharge Diagnosis (1) Abdominal pain Priority: Primary Status: Resolved Comments: States that she feels better this morning. She says abdominal pain is significantly better. She reports increased life stresses recently including of a close relative. She denies nausea or vomiting today. Abdomen remained slightly tender to palpation only in epigastric area. Abdomen is obese, rounded, soft with bowel sounds present. Liver ultrasound negative except for hepatic steatosis. There is no biliary ductal dilatation. Upper GI was negative normal and no evidence of stricture. Normal peristalsis. No ulcerations in the stomach. Patient is sitting up in room eating a regular meal tray without difficulty. Qualifiers: Abdominal location: epigastric Qualified Code(s): R10.13 - Epigastric pain (2) History of hiatal hernia Priority: Secondary Status: Chronic Comments: By history. Pt will follow up outpt with GI. (3) Essential hypertension Priority: Secondary Status: Chronic Comments: Well controlled. Continue home medications. (4) Elevated LFTs Priority: Secondary Status: Acute Comments: Pt will follow up outpt with GI. - Discharge Medications Home Medications: Acetaminophen [Tylenol] 500 mg PO Q6HR PRN 06/25/16 [History] Atorvastatin Calcium [Lipitor] 20 mg PO HS 06/25/16 [History] FLUoxetine HCl [Prozac] 80 mg PO DAILY 06/25/16 [History] Lisinopril [Zestril] 40 mg PO BID 06/25/16 [History] Metoprolol XL (24 HR) Succ [Toprol Xl] 50 mg PO DAILY 06/25/16 [History] Ranitidine HCl [Zantac] 150 mg PO BID PRN 06/25/16 [History] amLODIPine [Norvasc] 5 mg PO DAILY 06/25/16 [History] diazePAM [Valium] 10 mg PO BID 06/25/16 [History] hydroCHLOROthiazide [Hydrochlorothiazide] 25 mg PO DAILY 06/25/16 [History] Albuterol Sulfate [Proair Hfa] 2 puff IH Q4H PRN 04/06/17 [History] Azelastine HCl [Astepro] 1 spray NS DAILY 04/06/17 [History] Chlorhexidine Gluconate [Peridex] 5 ml MM DAILY 04/06/17 [History] Cholecalciferol (D-3) [Vitamin D] 1,000 unit PO DAILY 04/06/17 [History] Fluticasone Propionate Nasal [Flonase] 2 spray NS DAILY 04/06/17 [History] HYDROcodone/Acet 5/325 mg [[place] 5-325 mg] 1 tab PO Q6H PRN 04/06/17 [History] MethylPREDNISolone [MethylPREDNISolone Dose Pack] 4 mg PO AD 04/06/17 [History] Methylphenidate HCl [Ritalin LA] 40 mg PO QAM 04/06/17 [History] Pregabalin [Lyrica] 150 mg PO BID 04/06/17 [History] Allergies/Adverse Reactions: Allergies codeine Allergy (Verified 06/25/16 07:56) Palpitations Procedures/tests Complete & Pending: Procedures Performed prior 72 hours Category Date Time Status NM aide perf SPECT multi [NM] Routine Exams 04/06/17 08:11 Taken US liver [US] Routine Exams 04/06/17 11:30 Completed SP pharm nuclear stress Routine Y 04/06/17 08:11 Completed Date of admission: 04/06/17 03:22 Primary care physician: Corrina Howard, Consults: 04/06/17 08:11 Consult to Gastroenterology [CONS] Routine Consulting Provider: [facility] Reason for Consult: Epigastric pain/ hiatal hernia/ ? gastritis Time Notified: 08:12 Call Completed: Yes Discharging clinician: Eryn Lancaster Anticipated date of discharge: 04/08/17 - Patient Status Disposition: Home, Self-Care Condition: Good Functional capacity at discharge: independent ambulation Overall status at discharge: patient is back to baseline - Discharge Instructions Instructions: Chest Pain (DC), Chronic Hypertension (DC) Follow Up With: Corrina Howard MD [Primary Care Provider] - 04/12/17 10:30 am Additional Instructions: Follow up with your primary care physician in a week or 2 for follow up visit. Follow up with GI as scheduled. Resume your home medications. REturn to the ER as needed for any other problems or conditions of concern. - Diet and Activity Activity: resume usual activities as tolerated Diet: advance to your usual diet Hospital course: Ms. Champagne is a 57 year old female Pt presented to the emergency room on the day of admission with c/o sudden onset epigastric pain, diaphoresis, and radiation to her back that lasted 2 hours. Pain resolved when she arrived to emergency room. He states it was a worse pain she ever had. She has a history of GERD and hiatal hernia that was diagnosed by endoscopy 2 years ago. She said she has had have esophageal dilation several times as well. Today patient denies nausea or vomiting, states her back pain is at its baseline. She does see pain management for her back pain. Patient has a liver ultrasound that showed hepatic steatosis and no biliary ductal dilatation. She also had upper GI inpatient. The esophagus was normal and there is no evidence of stricture. There is normal peristalsis and no evidence of ulceration in the stomach. The duodenum is normal and had no evidence of ulceration or mass. Patient also had upper EUS that was unremarkable. Labs and vital signs have been within normal limits. Transaminases are elevated. States that she feels better and feels like she is ready to go home. She has been seen by GI this morning and they have signed off and will follow-up with her outpatient. Patient is stable and appropriate for discharge. - Time Spent with Patient Total time spent providing and/or coordinating discharge services: Less than 30 minutes - Constitutional Vitals: Temp Pulse Resp BP Pulse Ox 97.8 F 71 12 125/78 99 04/08/17 07:35 04/08/17 07:35 04/08/17 07:35 04/08/17 07:35 04/08/17 08:20 General appearance: Present: cooperative, A&O X 3, no acute distress, obese, answers questions appropriately - Head Head exam: Present: normal inspection - Eye Eye exam: Present: normal appearance, conjuntiva pink - ENT ENT exam: Present: mucous membranes moist, normal exam, normal external ear exam - Neck Neck exam general surgery: Present: normal inspection. Absent: lymphadenopathy , tenderness - Respiratory Respiratory exam: Absent: rales, respiratory distress, stridor, wheezes - Cardiovascular Cardiovascular exam: Present: RRR, +S1, +S2. Absent: diastolic murmur, systolic murmur - GI/Abdominal GI/Abdominal exam: Present: firm, normal bowel sounds, soft. Absent: hepatomegaly, tenderness - Neurological Exam Neurological exam: Present: normal gait, reflexes normal, strengths equal and symetr throughout. Absent: pronater drift
--- NOTE | 2017-04-08 10:21 | Gastroenterology Progress Note ---
<Meagan Vidal - Last Filed: 04/08/17 10:19> Date of Encounter: 04/08/17 Time of Encounter: 09:15 - Assessment and plan (1) Chest pain Current Visit: Yes Status: Resolved Qualifiers: Chest pain type: unspecified Qualified Code(s): R07.9 - Chest pain, unspecified (2) Elevated LFTs Current Visit: Yes Status: Acute Assessment and plan: Liver w/u pending. Will review results with patient in OV. (3) Dysphagia Current Visit: Yes Status: Chronic Assessment and plan: Repeat EGD w/dilation as needed. Qualifiers: Dysphagia type: unspecified Qualified Code(s): R13.10 - Dysphagia, unspecified (4) Abdominal pain Current Visit: Yes Status: Resolved Qualifiers: Abdominal location: epigastric Qualified Code(s): R10.13 - Epigastric pain - Time Spent With Patient Total time spent is greater than 50% in coordination of care (as documented) at patient's floor/unit and/or counseling patient: less than 15 minutes - Subjective Interval history: Patient seen and examined at bedside, she is feeling somewhat improved and is looking forward to going home. Continue present home medications, we will f/u with her in OV. No complaints at this time. - Constitutional Vitals: Temp Pulse Resp BP Pulse Ox 97.8 F 71 12 125/78 99 04/08/17 07:35 04/08/17 07:35 04/08/17 07:35 04/08/17 07:35 04/08/17 08:20 General appearance: Present: cooperative, A&O X 3, no acute distress, answers questions appropriately - Head Head exam: Present: atraumatic, normocephalic - Eye Eye exam: Present: normal appearance, sclera anicteric - ENT ENT exam: Present: mucous membranes moist - Neck Neck exam general surgery: Present: normal inspection, trachea midline - Respiratory Respiratory exam: Present: CTAB - Cardiovascular Cardiovascular exam: Present: RRR, +S1, +S2 - GI/Abdominal GI/Abdominal exam: Present: soft, no peritoneal signs - Rectal Rectal exam: Present: deferred - Extremities Exam Extremities exam: Present: warm - Neurological Exam Neurological exam: Present: no focal deficits - Psychiatric Psychiatric exam: Present: normal affect, normal mood - Skin Skin exam: Present: dry, intact, normal color, warm Results - Labs CBC & Chem 7: 04/07/17 18:01 04/07/17 18:01 Labs: Last Result Calcium 9.2 mg/dL (8.6-10.8) 04/07/17 18:01 Ferritin 101 ng/ml (5-204) 04/07/17 09:28 Troponin I 0.00 ng/mL (0-0.03) 04/06/17 08:21 Triglycerides 91 mg/dL (< 150) 04/07/17 04:54 Entire Visit Hgb 12.4 g/dL (11.5-15.4) 04/07/17 18:01 Hct 38.6 % (35.3-44.9) 04/07/17 18:01 Ferritin 101 ng/ml (5-204) 04/07/17 09:28 Total Bilirubin 1.0 mg/dL (0.2-1.2) 04/06/17 01:00 AST 174 Units/L (5-34) H 04/06/17 01:00 ALT 91 Units/L (0-55) H 04/06/17 01:00 Lipase 45 Units/L (8-78) 04/06/17 01:00 - Impressions Impressions Upper GI Series 04/07/17 07:00 IMPRESSION: 1. The esophagus demonstrates no evidence of a stricture, reflux, or dysmotility. 2. Normal stomach and duodenum. D/ / 04/07/2017 10:42:23 Maxime Hawley MD / Elle Tanner Interpreting Provider: Maxime Hawley MD Consult Discharge Plan - Plan Instructions: Chest Pain (DC), Chronic Hypertension (DC) Additional Instructions: Follow up with your primary care physician in a week or 2 for follow up visit. Follow up with GI as scheduled. Resume your home medications. REturn to the ER as needed for any other problems or conditions of concern. Referrals: Corrina Howard MD [Primary Care Provider] - 04/12/17 10:30 am <Gustabo Lamb - Last Filed: 04/08/17 10:35> Date of Encounter: 04/08/17 Time of Encounter: 10:15 - Time Spent With Patient Total time spent is greater than 50% in coordination of care (as documented) at patient's floor/unit and/or counseling patient: - Constitutional Vitals: Temp Pulse Resp BP Pulse Ox 97.8 F 71 12 125/78 99 04/08/17 07:35 04/08/17 07:35 04/08/17 07:35 04/08/17 07:35 04/08/17 08:20 Results - Labs CBC & Chem 7: 04/07/17 18:01 04/07/17 18:01 Labs: Last Result Calcium 9.2 mg/dL (8.6-10.8) 04/07/17 18:01 Ferritin 101 ng/ml (5-204) 04/07/17 09:28 Troponin I 0.00 ng/mL (0-0.03) 04/06/17 08:21 Triglycerides 91 mg/dL (< 150) 04/07/17 04:54 Entire Visit Hgb 12.4 g/dL (11.5-15.4) 04/07/17 18:01 Hct 38.6 % (35.3-44.9) 04/07/17 18:01 Ferritin 101 ng/ml (5-204) 04/07/17 09:28 Total Bilirubin 1.0 mg/dL (0.2-1.2) 04/06/17 01:00 AST 174 Units/L (5-34) H 04/06/17 01:00 ALT 91 Units/L (0-55) H 04/06/17 01:00 Lipase 45 Units/L (8-78) 04/06/17 01:00 - Impressions Impressions Upper GI Series 04/07/17 07:00 IMPRESSION: 1. The esophagus demonstrates no evidence of a stricture, reflux, or dysmotility. 2. Normal stomach and duodenum. D/ / 04/07/2017 10:42:23 Maxime Hawley MD / Elle Tanner Interpreting Provider: Maxime Hawley MD - Attending Attestation I examined this patient and my medical decision-making was reviewed with the MECHANICAL ENGINEERING SPECIALIST/PA/Advanced Practice Nurse/Resident Physician. I agree with the documented findings, disposition and treatment plan as described except to the extent set forth below.
[2017-04-08 11:01] LABS: Alpha-1-Antitrypsin 146 mg/dL (90-200); Ceruloplasmin 28 mg/dL (17-54)
[2017-04-09 10:40] LABS: ANA IgG by ELISA NONE DETECTED (None Detected); F-Actin (sm muscle) Ab IgG 10 Units (0-19)
[2017-04-10 09:53] LABS: Myeloperoxidase Ab 6 AU/mL (0-19); Serine Protease-3 Antibody 1 AU/mL (0-19)
== END 2017-04-08 11:10 | disposition home or self-care (01) ==
LOC: 3BNU 00:11 → EMEROO 00:11 → 3BNU 04:05
PROVIDERS: ADMIT Pediatrics; ATTEND Registered Nurse
PROC: ENDOEUS (2017-04-07 15:30)

== ENCOUNTER 2017-04-23 22:45 | Observation (INO) ==
[2017-04-23] MEDS ORDERED: 0.9 % Sodium Chloride 1,000 ML IVC ONE (23:02)
[2017-04-24 00:20] LABS: Basophils % 0.8 %; Eosinophils % 3.7 %; Hemoglobin 12.1 g/dL (11.5-15.4); Immature Granulocytes % 0.3 % (0-4); Immature Platelets 4.6 % (1.1-6.1); Lymphocytes % 27.9 %; Mean Corpuscular HGB Conc 31.8 g/dL (31.6-35.5); Mean Corpuscular Hemoglobin 28.8 pg (28.0-33.3); Mean Corpuscular Volume 90.5 fL (83.0-100.0); Mean Platelet Volume 10.7 fL (9.4-12.4); Monocytes % 7.6 %; Platelet Count 268 K/mcL (140-400); Red Cell Distribution Width 13.2 % (11.5-14.5); Segmented Neutrophils % 59.7 %
[2017-04-24 00:21] LABS: Basophils # 0.1 K/mcL (0.0-0.2); Eosinophils # 0.2 K/mcL (0.0-0.6); Lymphocytes # 1.8 K/mcL (0.6-4.6); Monocytes # 0.5 K/mcL (0.0-1.3); Neutrophils # 3.9 K/mcL (1.6-8.9)
[2017-04-24 00:35] LABS: Calcium 10.6 mg/dL (8.6-10.8); Potassium 3.8 mEq/L (3.5-4.5)
[2017-04-24] MEDS ORDERED: *HR* HYDROcodone/Acet 5/325 mg TABLET PO ONE (00:54)
[2017-04-24] MEDS ORDERED: 0.9 % Sodium Chloride 1,000 ML ONE (01:31)
[2017-04-24] MEDS ORDERED: *HR* FentaNYL (PF) 100 MCG/2 ML VIAL IVP ONE (02:21)
[2017-04-24] MEDS ORDERED: 0.9 % Sodium Chloride 1,000 ML IVC ONE ×3 (02:22→04:49)
[2017-04-24 03:22] LABS: Bilirubin,Urine Negative (Negative); Blood,Urine Negative (Negative); Clarity,Urine Clear (Clear); Color,Urine Yellow (Yellow); Glucose,Urine (UA) Normal (Normal); Ketones,Urine Negative (Negative); Leukocyte Esterase,Urine Negative (Negative); Nitrite,Urine Negative (Negative); Protein,Urine Negative (Neg-Trace); Specific Gravity,Urine 1.009 (1.010-1.025); Urobilinogen,Urine Normal (Normal)
[2017-04-24 04:41] LABS: Calcium 9.1 mg/dL (8.6-10.8); Potassium 3.5 mEq/L (3.5-4.5)
--- NOTE | 2017-04-24 04:55 | Emergency Department Note ---
Disposition Clinical Impression: Hypotension Qualifiers: Hypotension type: unspecified hypotension type Qualified Code(s): I95.9 - Hypotension, unspecified Acute kidney failure Qualifiers: Acute renal failure type: unspecified Qualified Code(s): N17.9 - Acute kidney failure, unspecified Disposition: Admitted As Inpatient Condition: Good Time of Disposition: 05:31 Dizziness HPI - General Chief Complaint: ED General Medical Stated Complaint: low bp/dizzy/fall Time Seen by Provider: 04/23/17 22:59 Source: patient Limitations: no limitations Nursing Notes Reviewed: Yes Vital Signs Reviewed: Yes - History of Present Illness Pt Subjective Complaint: dizziness, other Onset (ago): day(s) Description: lightheadedness, off-balance, difficulty walking, near-syncope History of similar episodes: Yes History of trauma: No Severity: none Improves with: nothing Worsens with: nothing Associated symptoms: Reports: other (decrease urine and BM) - Related Data Home Medications Medication Instructions Recorded Confirmed Acetaminophen [Tylenol] 500 mg PO Q6HR PRN 06/25/16 04/24/17 Atorvastatin Calcium [Lipitor] 20 mg PO HS 06/25/16 04/24/17 FLUoxetine HCl [Prozac] 40 mg PO DAILY 06/25/16 04/24/17 Lisinopril [Zestril] 40 mg PO BID 06/25/16 04/24/17 Ranitidine HCl [Zantac] 150 mg PO BID PRN 06/25/16 04/24/17 amLODIPine [Norvasc] 10 mg PO DAILY 06/25/16 04/24/17 diazePAM [Valium] 10 mg PO BID 06/25/16 04/24/17 hydroCHLOROthiazide 25 mg PO DAILY 06/25/16 04/24/17 [Hydrochlorothiazide] Albuterol Sulfate [Proair Hfa] 2 puff IH Q4H PRN 04/06/17 04/24/17 Azelastine HCl [Astepro] 1 spray NS DAILY 04/06/17 04/24/17 Chlorhexidine Gluconate [Peridex] 5 ml MM DAILY 04/06/17 04/24/17 Cholecalciferol (D-3) [Vitamin D] 1,000 unit PO DAILY 04/06/17 04/24/17 Fluticasone Propionate Nasal 2 spray NS DAILY 04/06/17 04/24/17 [Flonase] HYDROcodone/Acet 5/325 mg [[place] 1 tab PO Q6H PRN 04/06/17 04/24/17 5-325 mg] Methylphenidate HCl [Ritalin LA] 40 mg PO QAM 04/06/17 04/24/17 Pregabalin [Lyrica] 150 mg PO BID 04/06/17 04/24/17 Colace 100 mg PO DAILY 04/24/17 04/24/17 Metoprolol Succinate 25 mg PO DAILY 04/24/17 04/24/17 Omeprazole 20 mg PO BID 04/24/17 04/24/17 Allergies Allergy/AdvReac Type Severity Reaction Status Date / Time codeine Allergy Palpitation Verified 06/25/16 07:56 s All systems ED: reviewed and negative except as stated. Constitutional: Denies: fever, chills, weakness Eyes: Denies: eye pain ENT ED: Denies: ear pain Cardiovascular: Denies: chest pain Respiratory: Denies: cough, dyspnea, wheezes Gastrointestinal: Denies: abdominal pain, nausea, vomiting Genitourinary: Denies: dysuria Musculoskeletal: Denies: back pain Integumentary: Denies: rash Neurological: Reports: weakness Hematological/Lymphatic: Denies: easy bleeding Allergic/Immunologic: Denies: facial swelling Past Medical History - Past Medical History Medical history: Reports: arthritis, GERD, hyperlipidemia, hypertension Surgical history: Reports: cholecystectomy, hysterectomy, MARTINA/BSO Psychiatric history: Reports: anxiety, depression - Social History Smoking Status: Never smoker Smokeless Tobacco Status: No Alcohol use: Reports: none Drug use: Reports: none Physical Exam - General Limitations: no limitations General appearance: alert, in no apparent distress - Head Head exam: normocephalic - Eye Eye exam: Present: EOMI. Absent: conjunctival injection - ENT ENT exam: normal oropharynx, mucous membranes moist - Neck Neck exam: Present: full ROM. Absent: tenderness, meningismus - Chest Chest inspection: Present: normal inspection. Absent: symmetric chest wall rise - Respiratory Respiratory exam: Present: normal lung sounds bilaterally. Absent: respiratory distress, wheezes, stridor - Cardiovascular Cardiovascular exam: Present: regular rate, normal rhythm - Abdominal Exam Abdominal exam: Present: soft, Non-Tender - Expanded Lower Extremity Exam Hip/Pelvis exam: Present: full ROM Upper leg exam: Present: full ROM Knee exam: Present: normal inspection, full ROM Lower leg exam: Present: abrasion Ankle exam: Present: normal inspection, full ROM Foot/toe exam: Present: normal inspection, full ROM Neurovascular/Tendon exam: Present: normal capillary refill. Absent: pulse deficit Gait: not tested/not observed - Back Exam Back exam: Present: normal inspection, full ROM - Neurological Exam Neurological exam: Present: alert - Psychiatric Psychiatric exam: Present: normal affect, normal mood. Absent: agitated - Skin Skin exam: Present: warm, dry, intact, normal color. Absent: rash, cyanosis, diaphoresis Course Course Narrative: 57-year-old female presents with concerns for low blood pressure. She states her home measurements prior to arrival where her systolic to 70. She also mentions recent , lightheadedness, feeling unstable. She also mentions to mechanical fall forward. She denies any loss consciousness, injury to her head. Patient seen and examined. She is no acute distress. Workup initiated. Patient states that she has had difficulty getting IV access placed and is requesting ultrasound. Patient is agreeable to hold off on any pain medications until IV access is obtained. Patient has a list of her visit summary from previous admission, and mentions her PCP has lowered these meds since that visit. I reviewed her medication list with her. She states that her blood pressure meds are metoprolol 25 once daily, amlodipine 10 mg once daily, lisinopril 20 mg once daily, and hydrochlorothiazide 25 mg once daily. - Reevaluation(s) Reevaluation #1: Patient's workup shows worsening renal function since last week. Fluids have been ordered. IV access has been placed. Patient's pain improving. Time: 01:00 Reevaluation #2: Patient finished 1L. Patient's blood pressure improving. Pain continues. We will order a low dose of fentanyl and monitor BP. Time: 02:03 Reevaluation #3: Patient is receiving total of 3 L of saline. Repeat BMP shows some improvement in her renal function. However repeat blood pressure show latest blood pressure is 87/49. Orthostatics consistent readings. Discussed with Dr. Castrejon who also placed on the patient, and agreed for admission for acute kidney injury and hypertension. Time: 05:04 Additional Reevaluation(s): @05:18 Pt discussed with and accepted by hospitalist Dr. Ducu Vital Signs Temperature 97.7 F 04/23/17 22:45 Pulse Rate 65 04/23/17 22:45 Respiratory Rate 18 04/23/17 22:45 Blood Pressure 96/59 04/23/17 22:45 O2 Sat by Pulse Oximetry 100 04/23/17 22:45 Temperature 97.7 F 04/23/17 22:45 Pulse Rate 61 04/24/17 04:53 Respiratory Rate 20 04/24/17 04:53 Blood Pressure 95/55 04/24/17 04:53 O2 Sat by Pulse Oximetry 96 04/24/17 04:53 Oxygen Delivery Oxygen Delivery Room Air Dizziness - MDM Narrative Medical decision making narrative: Patient is a 57-year-old female who presented with concern for low blood pressure at home area she describes dizziness lightheadedness difficulty urinating, and increased weakness over the past month. Exam here showed some decreased renal function. I feel this is likely related to dehydration as her labs improved with fluids. Blood pressure had improved slightly after 2 L but then she became hypotensive. She has chronic back pain which is worsened after mechanical fall earlier today, however her pain had improved after analgesics here. I discussed patient with Dr. Castrejon who also had FaceTime patient and agreed with workup and admission for hypotension and acute kidney disease. Patient was accepted by hospitalist. Chest X-Ray 04/23/17 23:02 IMPRESSION: No acute process. D/ / Dontae Espitia MD / Dontae Espitia MD Interpreting Provider: Dontae Espitia MD All Lab Results (24 Hours) 04/24/17 04/24/17 04/24/17 Range/Units 00:12 00:12 00:12 WBC 6.5 (4.3-11.1) K/mcL RBC 4.20 (3.82-4.97) M/mcL Hgb 12.1 (11.5-15.4) g/dL Hct 38.0 (35.3-44.9) % MCV 90.5 (83.0-100.0) fL MCH 28.8 (28.0-33.3) pg MCHC 31.8 (31.6-35.5) g/dL RDW 13.2 (11.5-14.5) % Plt Count 268 (140-400) K/mcL MPV 10.7 (9.4-12.4) fL Immature Gran % 0.3 (0-4) % Seg Neutrophils % 59.7 % Lymphocytes % 27.9 % Monocytes % 7.6 % Eosinophils % 3.7 % Basophils % 0.8 % Neutrophils # 3.9 (1.6-8.9) K/mcL Lymphocytes # 1.8 (0.6-4.6) K/mcL Monocytes # 0.5 (0.0-1.3) K/mcL Eosinophils # 0.2 (0.0-0.6) K/mcL Basophils # 0.1 (0.0-0.2) K/mcL Immature Plt Fraction 4.6 (1.1-6.1) % Sodium 138 (136-145) mEq/L Potassium 3.8 (3.5-4.5) mEq/L Chloride 101 (98-109) mEq/L Carbon Dioxide 25 (19-29) mEq/L BUN 38 H (7-20) mg/dL Creatinine 2.65 H (0.57-1.11) mg/dL Est GFR ( Amer) 23 L (> 60) Est GFR (Non-Af Amer) 19 L (> 60) BUN/Creatinine Ratio 14 (6-26) Glucose 85 (70-99) mg/dL Calculated Osmolality 294 (280-300) Calcium 10.6 (8.6-10.8) mg/dL Troponin I 0.01 (0-0.03) ng/mL Urine Color (Yellow) Urine Clarity (Clear) Urine pH (5.0-8.0) pH Units Ur Specific [place] (1.010-1.025) Urine Protein (Neg-Trace) mg/dL Urine Glucose (UA) (Normal) mg/dL Urine Ketones (Negative) mg/dL Urine Blood (Negative) Urine Nitrite (Negative) Urine Bilirubin (Negative) Urine Urobilinogen (Normal) mg/dL Ur Leukocyte Esterase (Negative) 04/24/17 04/24/17 Range/Units 03:10 04:08 WBC (4.3-11.1) K/mcL RBC (3.82-4.97) M/mcL Hgb (11.5-15.4) g/dL Hct (35.3-44.9) % MCV (83.0-100.0) fL MCH (28.0-33.3) pg MCHC (31.6-35.5) g/dL RDW (11.5-14.5) % Plt Count (140-400) K/mcL MPV (9.4-12.4) fL Immature Gran % (0-4) % Seg Neutrophils % % Lymphocytes % % Monocytes % % Eosinophils % % Basophils % % Neutrophils # (1.6-8.9) K/mcL Lymphocytes # (0.6-4.6) K/mcL Monocytes # (0.0-1.3) K/mcL Eosinophils # (0.0-0.6) K/mcL Basophils # (0.0-0.2) K/mcL Immature Plt Fraction (1.1-6.1) % Sodium 139 (136-145) mEq/L Potassium 3.5 (3.5-4.5) mEq/L Chloride 108 (98-109) mEq/L Carbon Dioxide 22 (19-29) mEq/L BUN 32 H (7-20) mg/dL Creatinine 1.85 H (0.57-1.11) mg/dL Est GFR ( Amer) 34 L (> 60) Est GFR (Non-Af Amer) 28 L (> 60) BUN/Creatinine Ratio 17 (6-26) Glucose 80 (70-99) mg/dL Calculated Osmolality 294 (280-300) Calcium 9.1 (8.6-10.8) mg/dL Troponin I (0-0.03) ng/mL Urine Color Yellow (Yellow) Urine Clarity Clear (Clear) Urine pH 6.0 (5.0-8.0) pH Units Ur Specific [place] 1.009 L (1.010-1.025) Urine Protein Negative (Neg-Trace) mg/dL Urine Glucose (UA) Normal (Normal) mg/dL Urine Ketones Negative (Negative) mg/dL Urine Blood Negative (Negative) Urine Nitrite Negative (Negative) Urine Bilirubin Negative (Negative) Urine Urobilinogen Normal (Normal) mg/dL Ur Leukocyte Esterase Negative (Negative) - Lab Data Lab results reviewed: Yes I reviewed the patient's lab results. Result diagrams: 04/24/17 00:12 04/24/17 04:08 Lab Results 04/24/17 04/24/17 04/24/17 Range/Units 00:12 00:12 00:12 WBC 6.5 (4.3-11.1) K/mcL RBC 4.20 (3.82-4.97) M/mcL Hgb 12.1 (11.5-15.4) g/dL Hct 38.0 (35.3-44.9) % MCV 90.5 (83.0-100.0) fL MCH 28.8 (28.0-33.3) pg MCHC 31.8 (31.6-35.5) g/dL RDW 13.2 (11.5-14.5) % Plt Count 268 (140-400) K/mcL MPV 10.7 (9.4-12.4) fL Immature Gran % 0.3 (0-4) % Seg Neutrophils % 59.7 % Lymphocytes % 27.9 % Monocytes % 7.6 % Eosinophils % 3.7 % Basophils % 0.8 % Neutrophils # 3.9 (1.6-8.9) K/mcL Lymphocytes # 1.8 (0.6-4.6) K/mcL Monocytes # 0.5 (0.0-1.3) K/mcL Eosinophils # 0.2 (0.0-0.6) K/mcL Basophils # 0.1 (0.0-0.2) K/mcL Immature Plt Fraction 4.6 (1.1-6.1) % Sodium 138 (136-145) mEq/L Potassium 3.8 (3.5-4.5) mEq/L Chloride 101 (98-109) mEq/L Carbon Dioxide 25 (19-29) mEq/L BUN 38 H (7-20) mg/dL Creatinine 2.65 H (0.57-1.11) mg/dL Est GFR ( Amer) 23 L (> 60) Est GFR (Non-Af Amer) 19 L (> 60) BUN/Creatinine Ratio 14 (6-26) Glucose 85 (70-99) mg/dL Calculated Osmolality 294 (280-300) Calcium 10.6 (8.6-10.8) mg/dL Troponin I 0.01 (0-0.03) ng/mL Urine Color (Yellow) Urine Clarity (Clear) Urine pH (5.0-8.0) pH Units Ur Specific [place] (1.010-1.025) Urine Protein (Neg-Trace) mg/dL Urine Glucose (UA) (Normal) mg/dL Urine Ketones (Negative) mg/dL Urine Blood (Negative) Urine Nitrite (Negative) Urine Bilirubin (Negative) Urine Urobilinogen (Normal) mg/dL Ur Leukocyte Esterase (Negative) 04/24/17 04/24/17 Range/Units 03:10 04:08 WBC (4.3-11.1) K/mcL RBC (3.82-4.97) M/mcL Hgb (11.5-15.4) g/dL Hct (35.3-44.9) % MCV (83.0-100.0) fL MCH (28.0-33.3) pg MCHC (31.6-35.5) g/dL RDW (11.5-14.5) % Plt Count (140-400) K/mcL MPV (9.4-12.4) fL Immature Gran % (0-4) % Seg Neutrophils % % Lymphocytes % % Monocytes % % Eosinophils % % Basophils % % Neutrophils # (1.6-8.9) K/mcL Lymphocytes # (0.6-4.6) K/mcL Monocytes # (0.0-1.3) K/mcL Eosinophils # (0.0-0.6) K/mcL Basophils # (0.0-0.2) K/mcL Immature Plt Fraction (1.1-6.1) % Sodium 139 (136-145) mEq/L Potassium 3.5 (3.5-4.5) mEq/L Chloride 108 (98-109) mEq/L Carbon Dioxide 22 (19-29) mEq/L BUN 32 H (7-20) mg/dL Creatinine 1.85 H (0.57-1.11) mg/dL Est GFR ( Amer) 34 L (> 60) Est GFR (Non-Af Amer) 28 L (> 60) BUN/Creatinine Ratio 17 (6-26) Glucose 80 (70-99) mg/dL Calculated Osmolality 294 (280-300) Calcium 9.1 (8.6-10.8) mg/dL Troponin I (0-0.03) ng/mL Urine Color Yellow (Yellow) Urine Clarity Clear (Clear) Urine pH 6.0 (5.0-8.0) pH Units Ur Specific [place] 1.009 L (1.010-1.025) Urine Protein Negative (Neg-Trace) mg/dL Urine Glucose (UA) Normal (Normal) mg/dL Urine Ketones Negative (Negative) mg/dL Urine Blood Negative (Negative) Urine Nitrite Negative (Negative) Urine Bilirubin Negative (Negative) Urine Urobilinogen Normal (Normal) mg/dL Ur Leukocyte Esterase Negative (Negative) - Radiology Data Radiology results reviewed: Yes I reviewed the patient's radiology results. - EKG Data EKG attestation: Yes I reviewed and interpreted this EKG. EKG results narrative: Sinus bradycardia, otherwise no ST changes
--- NOTE | 2017-04-24 05:06 | Emergency Department Note ---
Attestation Statement - Attestation Attestation: I, Bruno Castrejon MD, personally evaluated this patient and discussed their management with the midlevel provicer, PAC/MATTRESS SPECIALIST. I reviewed the midlevel provider 's note and agree with the documented findings, medical decision making, and plan of care. 57-year-old female presents to the emergency department with a complaint of having trouble with her blood pressure running low for the past 3 weeks or so. She has a long history of high blood pressure. She states that on January 26 she had a spinal oblation and since then has been having multiple problems. She complains of decreased appetite and decreased oral intake. On examination patient is a well-developed obese female in no acute distress. She is alert and oriented 3. There is no cyanosis or diaphoresis. Breath sounds are clear and equal bilaterally. Heart regular rate and rhythm. Abdomen is soft and nontender with normal bowel sounds. Labs reviewed. Significant acute kidney injury noted. EKG shows a sinus bradycardia with no acute changes. Chest x-ray negative. The hospitalist, Dr. Pantoja, was consulted and accepted admission of the patient.
[2017-04-24] MEDS ORDERED: *HR* HYDROcodone/Acet 5/325 mg TABLET PO PRN (06:18)
[2017-04-24] MEDS ORDERED: Famotidine 20 MG TABLET PO PRN ×2 (06:18→16:01)
--- NOTE | 2017-04-24 06:18 | Internal Med History&Physical ---
Date of Encounter: 04/24/17 Time of Encounter: 06:16 Assessment and Plan (1) GERD (gastroesophageal reflux disease) Current visit: Yes Status: Acute We will treat her with Protonix. Qualifiers: Esophagitis presence: without esophagitis Qualified Code(s): K21.9 - Gastro -esophageal reflux disease without esophagitis (2) Depression with anxiety Current visit: Yes Status: Acute Continue her home medication regimen for anxiety and depression. (3) Back pain Current visit: Yes Status: Acute She has acute on chronic back pain. She has a history of nerve ablation and in addition she fell and sprained her back. We will treat her with ice packs, Tylenol and IV fentanyl that the pain is not relieved by oral medication. Qualifiers: Back pain location: low back pain Chronicity: acute Back pain laterality : midline Sciatica presence: without sciatica Qualified Code(s): M54.5 - Low back pain (4) Essential hypertension Current visit: No Status: Chronic she has been taking multiple antihypertensive agents at home including lisinopril and amlodipine and HCTZ and metoprolol. She says that some of her blood pressure medication doses have been decreased by her PCP but her blood pressure rate remained low. Plan: At this point I will hold all her blood pressure medication and recommend restarting one at a time upon discharge if the blood pressure normalizes. I would start back with the metoprolol. (5) Hypotension Current visit: Yes Status: Acute Likely secondary to dehydration and multiple blood pressure medications. Plan: We will treat her with IV fluids. Check orthostatic vital signs. Hold all antihypertensives. Qualifiers: Hypotension type: hypotension due to drug Qualified Code(s): I95.2 - Hypotension due to drugs (6) Acute kidney failure Current visit: Yes Status: Acute Likely secondary to hypotension and dehydration. Obstructive uropathy is also in the differential. Plan: We will treat her with IV fluids. Avoid nephrotoxins. Stop CRYSTAL inhibitor. Strict I's and O's. Kidney and bladder ultrasound to rule out obstruction. Continue with Min catheter for now. Monitor BUN and creatinine closely. Adjust medication doses according to GFR. I will decrease A, to 100 mg daily. Qualifiers: Acute renal failure type: unspecified Qualified Code(s): N17.9 - Acute kidney failure, unspecified Internal Medicine - H&P: HPI Chief complaint: Low blood pressure Admitted From: Emergency Dept Plans for Post Hospital Care: Home History of present illness: Ms. Champagne is a 57 year old female with past medical history significant for hypertension , Chronic back pain, nerogenic bladder and GERD who presented to the hospital for low blood pressure and dizziness. She says that for the last 3 weeks since she was admitted to the hospital her blood pressure has been low, she had difficulty going to the bathroom both to urinate and move her bowels. Last night she check her blood pressure and noticed that her systolic pressure was in the 70s. She reports feeling dizzy and unsteady especially with standing up, and this has been getting worse for last 2 days. She suffered a fall while trying to let her dog out 2 days ago and injured her back. She did not hit her head. On evaluation in the emergency department her blood pressure was 96/59 initially. She was given 3 L of IV fluids and repeat blood pressure was 87/49. She was referred for admission. A 10 point review of systems was performed gram-positive pretty history of present illness additionally positive for vision impairment, chronic back pain, difficulty urinating, constipation, depression and anxiety. Otherwise negative. Family history positive for colon cancer in the patient's mother who was diagnosed at age 66 and Lewy body dementia in the patient's father. Social history patient is a former smoker, quit in 1994. Denies alcohol and drug use. Past Med Surg Social Fam HX - Past Medical History Medical history: arthritis, GERD, hyperlipidemia, hypertension Psychiatric history: anxiety, depression - Past Surgical History Surgical History: cholecystectomy, hysterectomy, MARTINA/BSO - Social History Smoking Status: Never smoker Smokeless Tobacco Status: No Alcohol use: none Drug use: none - Family History Mother Living Status: Cause of : colon cancer Hx Family Cardiac Disorders: No Hx Family Respiratory Disorders: No Hx Family Cancer: Yes (colon cancer) Hx Family GI Disorders: No Hx Family Genitourinary Disorders: No Hx Family Endocrine Disorder: No Hx Family Musculoskeletal Disorders: No Hx Family Neuromuscular Disorders: No Hx Family Neurologic Disorders: No Hx Family HEENT Disorders: No Hx Family Autoimmune Disorders: No Hx Family Reproductive Disorders: No Hx Family Psychosocial Disorders: No Hx Family Medical Disorders: No Internal Medicine - H&P: Meds Acetaminophen [Tylenol] 500 mg PO Q6HR PRN 06/25/16 [History] Atorvastatin Calcium [Lipitor] 20 mg PO HS 06/25/16 [History] FLUoxetine HCl [Prozac] 40 mg PO DAILY 06/25/16 [History] Lisinopril [Zestril] 20 mg PO DAILY 06/25/16 [History] Ranitidine HCl [Zantac] 150 mg PO BID PRN 06/25/16 [History] amLODIPine [Norvasc] 10 mg PO DAILY 06/25/16 [History] diazePAM [Valium] 10 mg PO BID 06/25/16 [History] hydroCHLOROthiazide [Hydrochlorothiazide] 25 mg PO DAILY 06/25/16 [History] Albuterol Sulfate [Proair Hfa] 2 puff IH Q4H PRN 04/06/17 [History] Azelastine HCl [Astepro] 1 spray NS DAILY 04/06/17 [History] Chlorhexidine Gluconate [Peridex] 5 ml MM DAILY 04/06/17 [History] Cholecalciferol (D-3) [Vitamin D] 1,000 unit PO DAILY 04/06/17 [History] Fluticasone Propionate Nasal [Flonase] 2 spray NS DAILY 04/06/17 [History] HYDROcodone/Acet 5/325 mg [[place] 5-325 mg] 1 tab PO Q6H PRN 04/06/17 [History] Methylphenidate HCl [Ritalin LA] 40 mg PO QAM 04/06/17 [History] Pregabalin [Lyrica] 150 mg PO BID 04/06/17 [History] Colace 100 mg PO DAILY 04/24/17 [History] Metoprolol Succinate 25 mg PO DAILY 04/24/17 [History] Omeprazole 20 mg PO BID 04/24/17 [History] Allergies codeine Allergy (Verified 06/25/16 07:56) Palpitations All Systems PM: A 10-system review of systems was performed and is negative for pertinent findings except as documented above in the HPI. - Constitutional Vitals: Temp Pulse Resp BP Pulse Ox 97.7 F 61 18 86/60 96 04/23/17 22:45 04/24/17 04:53 04/24/17 05:38 04/24/17 05:38 04/24/17 04:53 General appearance: Present: A&O X 3 - Eye Eye exam: Present: PERRL, conjuntiva pink, sclera anicteric Pupils: Present: PERRL - Respiratory Respiratory exam: Present: CTAB. Absent: accessory muscle use, rales, rhonchi, wheezes - Cardiovascular Cardiovascular exam: Present: RRR, +S1, +S2. Absent: diastolic murmur, gallop, rubs, systolic murmur - GI/Abdominal GI/Abdominal exam: Present: normal bowel sounds, soft, no peritoneal signs. Absent: distended, tenderness - Extremities Exam Extremities exam: Present: warm, radial pulses palpable and symetrical. Absent : calf tenderness, cyanotic, pedal edema - Skin Skin exam: Present: dry, intact Internal Med - H&P Results - Labs CBC & Chem 7: 04/24/17 00:12 04/24/17 04:08
[2017-04-24] MEDS ORDERED: Ondansetron 4 MG/2 ML VIAL IVP PRN (06:21)
[2017-04-24] MEDS ORDERED: Acetaminophen 325 MG TABLET PO PRN (06:21)
[2017-04-24] MEDS ORDERED: Naloxone 0.4 MG/ML INJ IVP PRN (06:21)
[2017-04-24] MEDS ORDERED: Albuterol 2.5 MG/3 ML NEBULIZER IH PRN (06:29)
[2017-04-24] MEDS: diazePAM 10 MG TABLET PO SCH ×2 (07:46→21:21)
[2017-04-24] MEDS: FLUoxetine 20 MG CAPSULE PO SCH (07:46)
[2017-04-24] MEDS: METHYLPHENIDATE HCL 40 MG PO SCH (07:46)
[2017-04-24] MEDS: Pregabalin 50 MG CAPSULE PO SCH (07:46)
[2017-04-24] MEDS: 0.9 % Sodium Chloride 1,000 ML IVC SCH ×3 (07:55→19:57)
[2017-04-24] MEDS: Fluticasone Propionate Nasal 50 MCG/SPRAY BOTTLE NS SCH (08:44)
[2017-04-24] MEDS: *HR* FentaNYL (PF) 100 MCG/2 ML VIAL IVP PRN ×2 (08:44→19:43)
--- NOTE | 2017-04-24 13:17 | Event Note ---
Date of Encounter: 04/24/17 Time of Encounter: 09:00 Patient's blood pressure is improving now. Her renal function is also improving. Continue IV hydration. Holding antihypertensives. Treat nausea with antiemetics.
[2017-04-24] MEDS: Cholecalciferol (D-3) 1,000 UNIT TABLET PO SCH (21:20)
[2017-04-25] MEDS: *HR* FentaNYL (PF) 100 MCG/2 ML VIAL IVP PRN ×4 (01:45→18:45)
[2017-04-25] MEDS: Cholecalciferol (D-3) 1,000 UNIT TABLET PO SCH (07:25)
[2017-04-25] MEDS: FLUoxetine 20 MG CAPSULE PO SCH (07:25)
[2017-04-25] MEDS: diazePAM 10 MG TABLET PO SCH ×2 (07:25→20:15)
[2017-04-25] MEDS: Pregabalin 50 MG CAPSULE PO SCH (07:25)
[2017-04-25] MEDS: Fluticasone Propionate Nasal 50 MCG/SPRAY BOTTLE NS SCH (07:33)
[2017-04-25] MEDS: METHYLPHENIDATE HCL 40 MG PO SCH (07:33)
[2017-04-25] MEDS ORDERED: 0.9 % Sodium Chloride 1,000 ML IVC SCH (08:45)
--- NOTE | 2017-04-25 09:10 | Urology - Consult Note ---
Date of Encounter: 04/25/17 Time of Encounter: 09:07 - Assessment and Plan (1) Acute kidney failure Current Visit: Yes Status: Acute Assessment and plan: I discussed with the patient that acute renal insufficiency is obstructive in nature especially with a recent negative. with her recent hypotension and decreased by mouth intake I suspect a prerenal cause. OK to remove cath at primary teams discretion. Watch for adequate urine output.If still having difficulty urinating,replace Lopez catheter, discharge with in place, followup in near future to learn SIC. plan to keep Interstim offi until all nonurologic issues are better managed. Qualifiers: Acute renal failure type: unspecified Qualified Code(s): N17.9 - Acute kidney failure, unspecified Urology CN:EDINSON Consult date: 04/25/17 History of present illness: pt well known to the office. multiple subjective symptoms. admitted with acute renal insufficiency and hypotension. She has an InterStim in place for severe urinary frequency. she was seen last week in the urology for difficulty urinating. postvoid residual was minimal at that time. CT scan showed no obstruction or acute abnormalities.She is complained of increasing problem since a back injection. I elected to turn Interstim off and follow in one month. on admission, cath palced which had only 300cc of residual urine. Past Med Surg Social Fam HX - Past Medical History Medical history: arthritis, GERD, hyperlipidemia, hypertension Psychiatric history: anxiety, depression - Past Surgical History Surgical History: cholecystectomy, hysterectomy, MARTINA/BSO - Social History Smoking Status: Never smoker Smokeless Tobacco Status: No Alcohol use: none Drug use: none - Family History Mother Living Status: Cause of : colon cancer Hx Family Cardiac Disorders: No Hx Family Respiratory Disorders: No Hx Family Cancer: Yes (colon cancer) Hx Family GI Disorders: No Hx Family Genitourinary Disorders: No Hx Family Endocrine Disorder: No Hx Family Musculoskeletal Disorders: No Hx Family Neuromuscular Disorders: No Hx Family Neurologic Disorders: No Hx Family HEENT Disorders: No Hx Family Autoimmune Disorders: No Hx Family Reproductive Disorders: No Hx Family Psychosocial Disorders: No Hx Family Medical Disorders: No Medications and Allergies Acetaminophen [Tylenol] 500 mg PO Q6HR PRN 06/25/16 [History] Atorvastatin Calcium [Lipitor] 40 mg PO HS 06/25/16 [History] FLUoxetine HCl [Prozac] 40 mg PO BID 06/25/16 [History] Lisinopril [Zestril] 40 mg PO BID 06/25/16 [History] Ranitidine HCl [Zantac] 150 mg PO BID PRN 06/25/16 [History] diazePAM [Valium] 10 mg PO BID 06/25/16 [History] hydroCHLOROthiazide [Hydrochlorothiazide] 25 mg PO DAILY 06/25/16 [History] Albuterol Sulfate [Proair Hfa] 2 puff IH Q4H PRN 04/06/17 [History] Azelastine HCl [Astepro] 1 spray NS DAILY 04/06/17 [History] Chlorhexidine Gluconate [Peridex] 5 ml MM DAILY 04/06/17 [History] Cholecalciferol (D-3) [Vitamin D] 1,000 unit PO DAILY 04/06/17 [History] Fluticasone Propionate Nasal [Flonase] 100 mcg NS DAILY 04/06/17 [History] HYDROcodone/Acet 5/325 mg [[place] 5-325 mg] 1 tab PO Q6H PRN 04/06/17 [History] Methylphenidate HCl [Ritalin LA] 40 mg PO QAM 04/06/17 [History] Pregabalin [Lyrica] 150 mg PO BID 04/06/17 [History] Docusate [Colace] 100 mg PO BID 04/24/17 [History] Metoprolol XL (24 HR) Succ [Toprol XL] 25 mg PO DAILY 04/24/17 [History] Allergies codeine Allergy (Verified 06/25/16 07:56) Palpitations Review of Systems - Constitutional fatigue, malaise, no chills, no fever(s) - EENT Nose, mouth and throat: dizziness - Cardiovascular no chest pain - Respiratory no cough - Gastrointestinal no abdominal pain - Genitourinary Genitourinary: urinary hesitancy - Musculoskeletal no back pain - Integumentary no erythema - Neurological no confusion - Psychiatric anxiety - Hematologic/Lymphatic no easy bleeding - Allergic/Immunologic no throat swelling Exam Initial Vital Signs Temp Pulse Resp BP Pulse Ox 97.7 F 65 18 96/59 100 04/23/17 22:45 04/23/17 22:45 04/23/17 22:45 04/23/17 22:45 04/23/17 22:45 - General physical appearance Present: well developed, no distress - Eyes Present: PERRL - ENT Present: normal nares - Neck Present: no masses - Respiratory Present: normal respiratory effort - Cardiovascular Cardiovascular exam IM: RRR - Abdomen Abdomen: Present: soft - Integumentary Present: no rash - Neurologic Present: normal coordination. Absent: disoriented, confused - Additional Findings urine in lopez clear. Urology Results - Labs 04/24/17 00:12 04/24/17 04:08 Abnormal lab results BUN 32 mg/dL (7-20) H 04/24/17 04:08 Creatinine 1.85 mg/dL (0.57-1.11) H 04/24/17 04:08 Est GFR ( Amer) 34 (> 60) L 04/24/17 04:08 Est GFR (Non-Af Amer) 28 (> 60) L 04/24/17 04:08 POC Glucose 100 (58-89) H 04/23/17 23:41 Ur Specific [place] 1.009 (1.010-1.025) L 04/24/17 03:10 All other labs normal. Consult Discharge Plan - Plan Referrals: Corrina Howard MD [Primary Care Provider] -
[2017-04-25 09:47] LABS: Basophils % 0.6 %; Eosinophils # 0.2 K/mcL (0.0-0.6); Eosinophils % 2.9 %; Hematocrit 38.5 % (35.3-44.9); Hemoglobin 12.1 g/dL (11.5-15.4); Immature Granulocytes % 0.3 % (0-4); Immature Platelets 4.3 % (1.1-6.1); Lymphocytes # 1.1 K/mcL (0.6-4.6); Mean Corpuscular HGB Conc 31.4 g/dL (31.6-35.5); Mean Corpuscular Hemoglobin 28.7 pg (28.0-33.3); Mean Corpuscular Volume 91.4 fL (83.0-100.0); Mean Platelet Volume 10.9 fL (9.4-12.4); Monocytes # 0.3 K/mcL (0.0-1.3); Neutrophils # 4.6 K/mcL (1.6-8.9); Platelet Count 208 K/mcL (140-400); Red Blood Count 4.21 M/mcL (3.82-4.97); Red Cell Distribution Width 13.2 % (11.5-14.5); Segmented Neutrophils % 74.2 %
[2017-04-25 10:34] LABS: BUN/Creatinine Ratio 13 (6-26); Blood Urea Nitrogen 9 mg/dL (7-20); Calcium 9.9 mg/dL (8.6-10.8); Carbon Dioxide 23 mEq/L (19-29); Chloride 109 mEq/L (98-109); Glucose 88 mg/dL (70-99); Magnesium 1.6 mg/dL (1.6-2.6); Osmolality,Calculated 292 (280-300); Sodium 142 mEq/L (136-145); eGFR For African Americans > 60 (> 60); eGFR For Non-African Americans > 60 (> 60)
--- NOTE | 2017-04-25 14:45 | Internal Med Progress Note ---
Date of Encounter: 04/25/17 Time of Encounter: 08:20 - Assessment and plan (1) Acute kidney failure Current Visit: Yes Status: Acute Assessment and plan: Improving. Likely related to dehydration and poor oral intake rather than obstructive uropathy. Urology has been consulted as patient has a InterStim device for her bladder. Appreciate input. Will remove Min catheter to see if patient is able to pass urine on her own without any issues. Renal function has normalized now. Continue gentle IV hydration. Low risk for complications Qualifiers: Acute renal failure type: with acute tubular necrosis Qualified Code(s): N17.0 - Acute kidney failure with tubular necrosis (2) Back pain Current Visit: Yes Status: Acute Assessment and plan: Continues to have back pain. We will consult physical therapy for evaluation. Would also get a lumbar spine x-ray Qualifiers: Back pain location: low back pain Chronicity: acute Back pain laterality : midline Sciatica presence: without sciatica Qualified Code(s): M54.5 - Low back pain (3) Essential hypertension Current Visit: No Status: Chronic Assessment and plan: Holding antihypertensives as patient presented with hypotension. (4) Hypotension Current Visit: Yes Status: Acute Assessment and plan: Blood pressure is improving. Continue to monitor blood pressure. Antihypertensives are currently on hold. If blood pressure improves and patient becomes hypertensive, may resume antihypertensives at a lower dose. Qualifiers: Hypotension type: hypotension due to drug Qualified Code(s): I95.2 - Hypotension due to drugs - Subjective Interval history: Patient gets worse since she fell. She has had improvement in her urine output. Complains of having no bowel movements yet. No incontinence. Denies any nausea or vomiting - Constitutional Vitals: Temp Pulse Resp BP Pulse Ox 98.3 F 79 16 122/68 99 04/25/17 10:24 04/25/17 10:24 04/25/17 10:24 04/25/17 10:24 04/25/17 10:24 General appearance: Present: mild distress, A&O X 3, obese, answers questions appropriately - Neck Neck exam general surgery: Present: supple, trachea midline. Absent: lymphadenopathy - Respiratory Respiratory exam: Present: CTAB. Absent: accessory muscle use, rales, rhonchi, wheezes - Cardiovascular Cardiovascular exam: Present: RRR, +S1, +S2. Absent: diastolic murmur, gallop, rubs, systolic murmur - GI/Abdominal GI/Abdominal exam: Present: normal bowel sounds, soft, no peritoneal signs. Absent: distended, tenderness - Extremities Exam Extremities exam: Present: warm, radial pulses palpable and symetrical. Absent : calf tenderness, cyanotic, pedal edema Internal Medicine: Result - Labs CBC & Chem 7: 04/25/17 09:17 04/25/17 09:17 Labs: Short CBC 04/25/17 Range/Units 09:17 WBC 6.2 (4.3-11.1) K/mcL Hgb 12.1 (11.5-15.4) g/dL Hct 38.5 (35.3-44.9) % Plt Count 208 (140-400) K/mcL Neutrophils # 4.6 (1.6-8.9) K/mcL BMP 04/25/17 09:17 Sodium 142 Potassium 4.0 Chloride 109 Carbon Dioxide 23 BUN 9 D Creatinine 0.72 D Glucose 88 Calcium 9.9 Consult Discharge Plan - Plan Referrals: Corrina Howard MD [Primary Care Provider] - - Attending Attestation This document has been at least partially created by [employer] recognition technology by Dr. Garrido. Errors in grammar, wording or other phrases may exist. If errors are found after the documentation is signed, they will be addressed individually in the addendum section of this document when appropriate.
[2017-04-26] MEDS: Pregabalin 50 MG CAPSULE PO SCH (08:02)
[2017-04-26] MEDS: diazePAM 10 MG TABLET PO SCH (08:02)
[2017-04-26] MEDS: Cholecalciferol (D-3) 1,000 UNIT TABLET PO SCH (08:02)
[2017-04-26] MEDS: METHYLPHENIDATE HCL 40 MG PO SCH (08:02)
[2017-04-26] MEDS: FLUoxetine 20 MG CAPSULE PO SCH (08:02)
[2017-04-26] MEDS: Fluticasone Propionate Nasal 50 MCG/SPRAY BOTTLE NS SCH (08:05)
--- NOTE | 2017-04-26 09:29 | Discharge Summary ---
Date of Encounter: 04/26/17 Time of Encounter: 09:23 - Discharge Diagnosis (1) Hypotension Priority: Primary Status: Acute Qualifiers: Hypotension type: hypotension due to drug Qualified Code(s): I95.2 - Hypotension due to drugs (2) Acute kidney failure Priority: Primary Status: Acute Qualifiers: Acute renal failure type: with acute tubular necrosis Qualified Code(s): N17.0 - Acute kidney failure with tubular necrosis (3) Essential hypertension Priority: Secondary Status: Chronic (4) GERD (gastroesophageal reflux disease) Priority: Secondary Status: Chronic Qualifiers: Esophagitis presence: without esophagitis Qualified Code(s): K21.9 - Gastro -esophageal reflux disease without esophagitis (5) Depression with anxiety Priority: Secondary Status: Chronic (6) Back pain Priority: Secondary Status: Chronic Qualifiers: Back pain location: low back pain Chronicity: acute Back pain laterality : midline Sciatica presence: without sciatica Qualified Code(s): M54.5 - Low back pain - Discharge Medications Prescriptions: Bisacodyl [Dulcolax] 10 mg PO DAILY PRN #30 tablet PRN Reason: Constipation Home Medications: Acetaminophen [Tylenol] 500 mg PO Q6HR PRN 06/25/16 [History] Atorvastatin Calcium [Lipitor] 40 mg PO HS 06/25/16 [History] FLUoxetine HCl [Prozac] 40 mg PO BID 06/25/16 [History] Ranitidine HCl [Zantac] 150 mg PO BID PRN 06/25/16 [History] diazePAM [Valium] 10 mg PO BID 06/25/16 [History] Albuterol Sulfate [Proair Hfa] 2 puff IH Q4H PRN 04/06/17 [History] Azelastine HCl [Astepro] 1 spray NS DAILY 04/06/17 [History] Chlorhexidine Gluconate [Peridex] 5 ml MM DAILY 04/06/17 [History] Cholecalciferol (D-3) [Vitamin D] 1,000 unit PO DAILY 04/06/17 [History] Fluticasone Propionate Nasal [Flonase] 100 mcg NS DAILY 04/06/17 [History] HYDROcodone/Acet 5/325 mg [[place] 5-325 mg] 1 tab PO Q6H PRN 04/06/17 [History] Methylphenidate HCl [Ritalin LA] 40 mg PO QAM 05/10/17 [History] Pregabalin [Lyrica] 150 mg PO BID 04/06/17 [History] Docusate [Colace] 100 mg PO BID 04/24/17 [History] Metoprolol XL (24 HR) Succ [Toprol Xl] 25 mg PO DAILY 04/24/17 [History] Bisacodyl [Dulcolax] 10 mg PO DAILY PRN #30 tablet 04/26/17 [Rx] Allergies/Adverse Reactions: Allergies codeine Allergy (Verified 06/25/16 07:56) Palpitations Procedures/tests Complete & Pending: Procedures Performed prior 72 hours Category Date Time Status US retroperitoneal comp [US] Routine Exams 04/26/17 09:30 Ordered Date of admission: 04/24/17 05:28 Primary care physician: Corrina Howard, Consults: 04/25/17 07:38 Consult to Urology [CONS] Routine Consulting Provider: Urology Luann Reason for Consult: Patient with bladder stim device; concerned about malfunction Time Notified: 07:38 Call Completed: Yes 04/25/17 08:33 Consult to Occupational Therapy [CONS] Routine Comment: Evaluate, develop and implement POC Reason for Consult: Gen weakness Consult to Physical Therapy [CONS] Routine Comment: Evaluate, develop and implement POC Reason for Consult: Gen weakness Discharging clinician: Sandeep Carson Anticipated date of discharge: 04/26/17 - Patient Status Disposition: Home, Self-Care Condition: Good Functional capacity at discharge: independent ambulation Overall status at discharge: patient is back to baseline - Discharge Instructions Instructions: Bisacodyl (By mouth), Hypotension (GEN), Dizziness (GEN), Fall Prevention (DC) Follow Up With: Beth Middleton CNP [Advanced Practice Nurse] - 05/02/17 2:00 pm Thien Forrester MD [Partnered Physician] - 05/04/17 1:45 pm Additional Instructions: FOLLOW U WITH UROLOGY WITHIN A WEEK - Diet and Activity Activity: resume usual activities as tolerated Diet: low fat, low cholesterol, low salt diet Interval History: See below Hospital course: Ms. Champagne is a 57 year old female with past medical history of hypertension, GERD hyperlipidemia and osteoarthritis, neurogenic bladder with an indwelling bladder stimulator. She presented to the ER for low blood pressure and dizziness for 3 weeks. She also complained of difficulty going to the bathroom for both urinary and bowel movements. On admission to the ER she was found to have low blood pressure systolic blood pressure 96 diastolic 59, IV fluids was given and her blood pressure has improved. Workup revealed CONCHITA she improved promptly with IV fluid hydration. Her medications were stopped throughout the admission and was well-tolerated. was consulted and switched off the bladder stimulator Patient is seen and evaluated at bedside this morning, she is clinically stable for discharge, I will continue to hold lisinopril and hydrochlorothiazide, we will continue metoprolol for blood pressure control. Patient is encouraged to follow up with her primary care doctor for adjustment of medications as necessary, and re-initiation of ACEI. Plan of care is discussed with patient and patient verbalized understanding Recommend follow up with within a week for Neurogenic bladder follow up - Time Spent with Patient Total time spent providing and/or coordinating discharge services: Less than 30 minutes - Constitutional Vitals: Temp Pulse Resp BP Pulse Ox 98.0 F 78 16 128/72 93 04/26/17 07:06 04/26/17 07:06 04/26/17 07:06 04/26/17 07:06 04/26/17 07:06 General appearance: Present: A&O X 3, pleasant, no acute distress, obese, answers questions appropriately - Head Head exam: Present: atraumatic, normocephalic - Eye Eye exam: Present: PERRL, conjuntiva pink, sclera anicteric Pupils: Present: PERRL - Neck Neck exam general surgery: Present: supple, trachea midline. Absent: lymphadenopathy - Respiratory Respiratory exam: Present: CTAB. Absent: accessory muscle use, rales, rhonchi, wheezes - Cardiovascular Cardiovascular exam: Present: RRR, +S1, +S2. Absent: diastolic murmur, gallop, rubs, systolic murmur - GI/Abdominal GI/Abdominal exam: Present: normal bowel sounds, soft, no peritoneal signs. Absent: distended, tenderness - Extremities Exam Extremities exam: Present: warm, radial pulses palpable and symetrical. Absent : calf tenderness, cyanotic, pedal edema - Neurological Exam Neurological exam: Present: alert, CN II-XII intact, oriented X3, no focal deficits. Absent: pronater drift, facial droop, speech deficit - Skin Skin exam: Present: dry, intact
[2017-04-26 11:11] VITALS: BP 109/61
--- NOTE | 2017-04-26 17:25 | Electrocardiograph Report ---
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
== END 2017-04-26 14:54 | disposition home or self-care (01) ==
LOC: 3BNU 22:45 → EMEROO 22:45 → SUATTDRO 04-24 05:28 → 3BNU 04-24 05:45
PROVIDERS: ADMIT Internal Medicine; ATTEND Internal Medicine

== ENCOUNTER 2017-05-25 19:35 | Observation (INO) ==
[2017-05-25] MEDS ORDERED: Ondansetron 4 MG/2 ML VIAL IVP ONE (21:02)
[2017-05-25] MEDS ORDERED: *HR* HYDROmorphone (PF) 1 MG/ML SYRINGE IVP ONE ×3 (21:02→23:10)
--- NOTE | 2017-05-25 21:05 | Emergency Department Note ---
Disposition Clinical Impression: Anxiety, Degenerative joint disease (DJD) of lumbar spine, Degenerative joint disease of thoracic spine, Chronic back pain, Dyspnea, Elevated d-dimer, Depression, Obesity, History of UTI, Abnormal liver function tests, History of hypercholesterolemia Disposition: Admitted As Inpatient Referrals: NO,PCP [Non-Partnered Physician] - Forms: ED Satisfaction Letter General Adult HPI - General Chief complaint: ED Back Pain/Injury Stated complaint: back pain/dizzy Time Seen by Provider: 05/25/17 20:19 Source: patient Limitations: no limitations - History of Present Illness HPI Narrative: 57-year-old female reports to the emergency department with multiple complaints. She states she has mid lower back pain. The patient reports she called her personal physician who manages her back pain, they reported she should go to the ED. The patient reports she has not taken her personal pain medication because she has been at physician's all day. She states she went to a urologic follow-up today where her bladder stimulator was reinitiated. She states they thought maybe she had a UTI. She also followed up with her primary care physician and had some blood work done. She states she followed up with another physician as well. Later she called her pain specialist who recommended she come to the ED. The patient describes dyspnea, mid lower back pain, she has also been depressed and feeling anxious. The patient has not been suicidal or homicidal. There is no history of enrique abdominal pain vomiting or diarrhea. She reports she felt nauseated and has not been able to drink anything today. She thinks she may be dehydrated. She tells me she was admitted to the hospital a few weeks ago and had a stress test. She has no history of coronary artery disease. No history of DVT PE or cancer. There is no history of leg swelling or pain or coughing up blood. There is no history of fall or injury or confusion no difficulty moving the arms or legs independently, no acute bowel or bladder problems, no trouble walking talking hearing seeing or speaking. There is no history of enrique sciatica. No headache neck stiffness rash or fever no convulsion or unilateral arm or leg weakness or numbness. She also states she has a runny stuffy nose as well as ear pain and thinks she may have a sinus infection. The patient requests pain medication. She thinks she may be dehydrated. She describes shortness of breath and describes her feet cramping. The patient is not currently anticoagulated. There is no history of calf swelling or pain. Pain Scale: 10 - Related Data Home Medications Medication Instructions Recorded Confirmed Acetaminophen [Tylenol] 500 mg PO Q6HR PRN 06/25/16 04/24/17 Atorvastatin Calcium [Lipitor] 40 mg PO HS 06/25/16 04/24/17 FLUoxetine HCl [Prozac] 40 mg PO BID 06/25/16 04/24/17 Ranitidine HCl [Zantac] 150 mg PO BID PRN 06/25/16 04/24/17 diazePAM [Valium] 10 mg PO BID 06/25/16 04/24/17 Albuterol Sulfate [Proair Hfa] 2 puff IH Q4H PRN 04/06/17 04/24/17 Azelastine HCl [Astepro] 1 spray NS DAILY 04/06/17 04/24/17 Chlorhexidine Gluconate [Peridex] 5 ml MM DAILY 04/06/17 04/24/17 Cholecalciferol (D-3) [Vitamin D] 1,000 unit PO DAILY 04/06/17 04/24/17 Fluticasone Propionate Nasal 100 mcg NS DAILY 04/06/17 04/24/17 [Flonase] HYDROcodone/Acet 5/325 mg [[place] 1 tab PO Q6H PRN 04/06/17 04/24/17 5-325 mg] Methylphenidate HCl [Ritalin LA] 40 mg PO QAM 04/06/17 04/24/17 Pregabalin [Lyrica] 150 mg PO BID 04/06/17 04/24/17 Docusate [Colace] 100 mg PO BID 04/24/17 04/24/17 Metoprolol XL (24 HR) Succ [Toprol 25 mg PO DAILY 04/24/17 04/24/17 Xl] Previous Rx's Medication Instructions Recorded Bisacodyl [Dulcolax] 10 mg PO DAILY PRN #30 tablet 04/26/17 Allergies Allergy/AdvReac Type Severity Reaction Status Date / Time codeine Allergy Palpitation Verified 06/25/16 07:56 s All systems ED: reviewed and negative except as stated. Past Medical History - Past Medical History Medical history: Reports: arthritis, GERD, hyperlipidemia, hypertension Surgical history: Reports: cholecystectomy, hysterectomy, MARTINA/BSO Psychiatric history: Reports: anxiety, depression - Social History Smoking Status: Never smoker Smokeless Tobacco Status: No Alcohol use: Reports: none Drug use: Reports: none Physical Exam - General Limitations: no limitations General appearance: alert, in no apparent distress - Head Head exam: atraumatic, normocephalic, normal inspection - Eye Eye exam: Present: normal appearance, PERRL, EOMI - ENT ENT exam: normal exam, normal oropharynx, mucous membranes moist, TM's normal bilaterally, normal external ear exam - Neck Neck exam: Present: normal inspection, full ROM, trachea midline. Absent: tenderness - Chest Chest inspection: Present: symmetric chest wall rise. Absent: tenderness - Respiratory Respiratory exam: Present: normal lung sounds bilaterally. Absent: respiratory distress, wheezes, stridor, accessory muscle use, prolonged expiratory phase - Cardiovascular Cardiovascular exam: Present: regular rate, normal rhythm, normal heart sounds - Abdominal Exam Abdominal exam: Present: soft, Non-Tender, normal bowel sounds. Absent: tenderness, distention, guarding, rebound, rigidity, pulsatile mass - Rectal Exam Rectal exam: Present: deferred (Patient declines.) - Extremities Exam Extremities exam: Present: normal inspection, full ROM, normal capillary refill. Absent: tenderness, pedal edema, joint swelling, calf tenderness - Expanded Lower Extremity Exam Lower leg exam: Absent: Homans' sign Neurovascular/Tendon exam: Present: normal capillary refill. Absent: pulse deficit, motor deficit, sensory deficit, tendon deficit, extremity cold to touch , pallor - Back Exam Back exam: Present: normal inspection, full ROM, vertebral tenderness, other ( Diffuse thoracic and lumbar pain.). Absent: tenderness, CVA tenderness (R), CVA tenderness (L), straight leg raise (R), straight leg raise (L) - Neurological Exam Neurological exam: Present: alert, oriented X3, CN II-XII intact. Absent: motor sensory deficit - Psychiatric Psychiatric exam: Present: normal affect, normal mood - Skin Skin exam: Present: warm, dry, intact, normal color. Absent: rash, cyanosis, diaphoresis, erythema, pallor, mottled Course Vital Signs Temperature 98.3 F 05/25/17 19:45 Pulse Rate 81 05/25/17 19:45 Respiratory Rate 20 05/25/17 19:45 Blood Pressure 125/84 05/25/17 19:45 O2 Sat by Pulse Oximetry 97 05/25/17 19:45 Temperature 98.3 F 05/25/17 19:45 Pulse Rate 69 05/25/17 22:29 Respiratory Rate 16 05/25/17 22:29 Blood Pressure 126/84 05/25/17 22:29 O2 Sat by Pulse Oximetry 96 05/25/17 22:29 Oxygen Delivery Oxygen Delivery Room Air Medical Decision Making - MDM Narrative Medical decision making narrative: The patient appears to have chronic back pain. Recent CT scan of the abdomen and pelvis and lumbar spine were reviewed. The patient's EKG is unremarkable. She had a recent stress test with negative perfusion imaging. She also had a recent EGD which demonstrated no common bile duct dilatation. She has a history of abnormal liver function tests does have slight hyperbilirubinemia here most of it indirect indicating nonobstructive disease. She has been seen by 3 different providers today and came to the ED on the advice of a fourth provider. She has been given 2 doses of Dilaudid and Zofran and still complains of pain. CTA chest negative. The patient states she may have a UTI, urinalysis pending. Urinalysis and CPK pending. A third dose of Dilaudid is been ordered as well as Solu-Medrol. The patient's reports he does not think the patient can go home she cannot stand up and walk well. He feels that if he takes her home, he will have continued pain, and he will just bring her back to the hospital. Based on the patient's apparent uncontrolled pain, having consulted with 3 physicians today in their offices, and consulting with her pain specialist recommended coming to the emergency department, I thought it would be appropriate to admit the patient for pain control and perhaps advanced imaging of the thoracolumbar spine. I do not highly suspect an epidural abscess or myelitis, however this is in the differential.. The patient is currently stable. I discussed the case with the hospitalist on-call who has accepted the patient to their care. - Lab Data Lab results reviewed: Yes I reviewed the patient's lab results. Result diagrams: 05/25/17 21:15 05/25/17 21:15 Lab Results 05/25/17 05/25/17 05/25/17 Range/Units 21:15 21:15 21:15 WBC 7.3 (4.3-11.1) K/mcL RBC 4.47 (3.82-4.97) M/mcL Hgb 13.1 (11.5-15.4) g/dL Hct 40.3 (35.3-44.9) % MCV 90.2 (83.0-100.0) fL MCH 29.3 (28.0-33.3) pg MCHC 32.5 (31.6-35.5) g/dL RDW 13.7 (11.5-14.5) % Plt Count 374 (140-400) K/mcL MPV 9.6 (9.4-12.4) fL Immature Gran % 0.3 (0-4) % Seg Neutrophils % 57.3 % Lymphocytes % 31.6 % Monocytes % 7.8 % Eosinophils % 1.9 % Basophils % 1.1 % Neutrophils # 4.2 (1.6-8.9) K/mcL Lymphocytes # 2.3 (0.6-4.6) K/mcL Monocytes # 0.6 (0.0-1.3) K/mcL Eosinophils # 0.1 (0.0-0.6) K/mcL Basophils # 0.1 (0.0-0.2) K/mcL D-Dimer (0-500) ng/mLFEU Sodium 136 (136-145) mEq/L Potassium 4.2 (3.5-4.5) mEq/L Chloride 100 (98-109) mEq/L Carbon Dioxide 24 (19-29) mEq/L BUN 17 (7-20) mg/dL Creatinine 1.06 (0.57-1.11) mg/dL Est GFR ( Amer) > 60 (> 60) Est GFR (Non-Af Amer) 54 L (> 60) BUN/Creatinine Ratio 16 (6-26) Glucose 97 (70-99) mg/dL Calculated Osmolality 283 (280-300) Lactic Acid 1.3 (0.5-2.2) mmol/L Calcium 10.9 H (8.6-10.8) mg/dL Total Bilirubin 1.5 H (0.2-1.2) mg/dL Direct Bilirubin 0.5 (0.0-0.5) mg/dL Indirect Bilirubin 1.0 (0.0-1.2) mg/dL AST 58 H (5-34) Units/L ALT 33 (0-55) Units/L Alkaline Phosphatase 98 (38-126) Units/L Troponin I (0-0.03) ng/mL C-Reactive Protein 9 H (Less than 5) mg/L Serum Total Protein 7.8 (6.0-8.3) g/dL Albumin 4.1 (3.5-5.0) g/dL Globulin 3.7 H (2.4-3.5) g/dL Albumin/Globulin Ratio 1.1 (1.1-2.2) Lipase 25 (8-78) Units/L 05/25/17 05/25/17 Range/Units 21:15 21:15 WBC (4.3-11.1) K/mcL RBC (3.82-4.97) M/mcL Hgb (11.5-15.4) g/dL Hct (35.3-44.9) % MCV (83.0-100.0) fL MCH (28.0-33.3) pg MCHC (31.6-35.5) g/dL RDW (11.5-14.5) % Plt Count (140-400) K/mcL MPV (9.4-12.4) fL Immature Gran % (0-4) % Seg Neutrophils % % Lymphocytes % % Monocytes % % Eosinophils % % Basophils % % Neutrophils # (1.6-8.9) K/mcL Lymphocytes # (0.6-4.6) K/mcL Monocytes # (0.0-1.3) K/mcL Eosinophils # (0.0-0.6) K/mcL Basophils # (0.0-0.2) K/mcL D-Dimer 726 H (0-500) ng/mLFEU Sodium (136-145) mEq/L Potassium (3.5-4.5) mEq/L Chloride (98-109) mEq/L Carbon Dioxide (19-29) mEq/L BUN (7-20) mg/dL Creatinine (0.57-1.11) mg/dL Est GFR ( Amer) (> 60) Est GFR (Non-Af Amer) (> 60) BUN/Creatinine Ratio (6-26) Glucose (70-99) mg/dL Calculated Osmolality (280-300) Lactic Acid (0.5-2.2) mmol/L Calcium (8.6-10.8) mg/dL Total Bilirubin (0.2-1.2) mg/dL Direct Bilirubin (0.0-0.5) mg/dL Indirect Bilirubin (0.0-1.2) mg/dL AST (5-34) Units/L ALT (0-55) Units/L Alkaline Phosphatase (38-126) Units/L Troponin I 0.00 (0-0.03) ng/mL C-Reactive Protein (Less than 5) mg/L Serum Total Protein (6.0-8.3) g/dL Albumin (3.5-5.0) g/dL Globulin (2.4-3.5) g/dL Albumin/Globulin Ratio (1.1-2.2) Lipase (8-78) Units/L - Radiology Data Radiology results reviewed: Yes I reviewed the patient's radiology results.
[2017-05-25 21:37] LABS: Basophils # 0.1 K/mcL (0.0-0.2); Basophils % 1.1 %; Eosinophils # 0.1 K/mcL (0.0-0.6); Eosinophils % 1.9 %; Hematocrit 40.3 % (35.3-44.9); Hemoglobin 13.1 g/dL (11.5-15.4); Immature Granulocytes % 0.3 % (0-4); Lymphocytes # 2.3 K/mcL (0.6-4.6); Lymphocytes % 31.6 %; Mean Corpuscular HGB Conc 32.5 g/dL (31.6-35.5); Mean Corpuscular Hemoglobin 29.3 pg (28.0-33.3); Mean Corpuscular Volume 90.2 fL (83.0-100.0); Mean Platelet Volume 9.6 fL (9.4-12.4); Monocytes # 0.6 K/mcL (0.0-1.3); Monocytes % 7.8 %; Neutrophils # 4.2 K/mcL (1.6-8.9); Platelet Count 374 K/mcL (140-400); Red Blood Count 4.47 M/mcL (3.82-4.97); Red Cell Distribution Width 13.7 % (11.5-14.5); Segmented Neutrophils % 57.3 %
[2017-05-25 21:51] LABS: Alanine Aminotransferase 33 Units/L (0-55); Albumin 4.1 g/dL (3.5-5.0); Albumin/Globulin Ratio 1.1 (1.1-2.2); Alkaline Phosphatase 98 Units/L (38-126); Aspartate Amino Transferase 58 Units/L (5-34); BUN/Creatinine Ratio 16 (6-26); Bilirubin,Direct 0.5 mg/dL (0.0-0.5); Bilirubin,Total 1.5 mg/dL (0.2-1.2); Blood Urea Nitrogen 17 mg/dL (7-20); C-Reactive Protein 9 mg/L (Less than 5); Calcium 10.9 mg/dL (8.6-10.8); Carbon Dioxide 24 mEq/L (19-29); Chloride 100 mEq/L (98-109); Globulin 3.7 g/dL (2.4-3.5); Glucose 97 mg/dL (70-99); Lipase 25 Units/L (8-78); Osmolality,Calculated 283 (280-300); Potassium 4.2 mEq/L (3.5-4.5); Sodium 136 mEq/L (136-145); Total Protein 7.8 g/dL (6.0-8.3); eGFR For African Americans > 60 (> 60); eGFR For Non-African Americans 54 (> 60)
[2017-05-25 23:03] LABS: Bilirubin,Urine Negative (Negative); Blood,Urine Negative (Negative); Clarity,Urine Cloudy (Clear); Color,Urine Yellow (Yellow); Glucose,Urine (UA) Normal (Normal); Ketones,Urine Negative (Negative); Leukocyte Esterase,Urine Trace (Negative); Nitrite,Urine Negative (Negative); Protein,Urine Negative (Neg-Trace); Specific Gravity,Urine 1.015 (1.010-1.025); Urobilinogen,Urine Normal (Normal)
[2017-05-25 23:09] LABS: RBC,Urine 0-3 per hpf (0-3); Squamous Epithelial Cell,Urine Many per lpf (None-Few)
[2017-05-25] MEDS ORDERED: methylPREDNISolone 125 MG/2 ML VIAL IVP ONE (23:10)
[2017-05-25 23:23] LABS: Creatine Kinase 1367 Units/L (29-168)
[2017-05-25 23:26] LABS: Bacteria,Urine Few per hpf (None-Few); Hyaline Casts,Urine Few per lpf (None-Few); Mucus,Urine Few (Few); Yeast,Urine Few per hpf (None Seen)
[2017-05-26] MEDS ORDERED: 0.9 % Sodium Chloride 1,000 ML IVC ONE (00:03)
[2017-05-26] MEDS ORDERED: Naloxone 0.4 MG/ML INJ IVP PRN (00:34)
[2017-05-26] MEDS ORDERED: *HR* Morphine 2 MG/ML SYRINGE IVP PRN (00:34)
[2017-05-26] MEDS ORDERED: Ondansetron 4 MG/2 ML VIAL IVP PRN (00:34)
--- NOTE | 2017-05-26 01:24 | Internal Med History&Physical ---
Date of Encounter: 05/26/17 Time of Encounter: 12:45 Assessment and Plan (1) Intractable low back pain Current visit: Yes Status: Acute history of chronic low back pain with degenerative changes in Lspine will continue pain management follow up [facility] spine patient sees Dr. Brownlee, Will obtain pain management consultation in am (2) Degenerative joint disease (DJD) of lumbar spine Current visit: Yes Status: Chronic Qualifiers: Spinal osteoarthritis complication: unspecified spinal osteoarthritis Qualified Code(s): M47.816 - Spondylosis without myelopathy or radiculopathy, lumbar region (3) Essential hypertension Current visit: No Status: Chronic Noted to be hypotensive, likely secondary to narcotic therapy will hold antihypertensive medications at this time (4) Obesity Current visit: Yes Status: Chronic Qualifiers: Obesity type: unspecified obesity type Obesity severity: morbid Qualified Code(s): E66.01 - Morbid (severe) obesity due to excess calories (5) DVT prophylaxis Current visit: Yes Status: Acute Heparin SQ Internal Medicine - H&P: HPI Chief complaint: back pain Admitted From: Home Plans for Post Hospital Care: Home History of present illness: Ms. Champagne is a 57 year old female with PMH of hypertension, GERD, HLD, osteoarthritis, chronic lower back pain, neurogenic bladder with an indwelling bladder stimulator that was reinitiated earlier today, thyroid surgery, and morbid obesity who is admitted for management of lower back pain. Patient was seen by her PCP, urologist, and pain specialist earlier today. She reports of missing some of her home medication dosages due to her appointments today, and the pain became extremely severe in her lower back which prompted her visit to the ER. She reports of seeing Dr. Brownlee for her chronic back pain and states as per his recommendation she came to the ER. States the pain is localized to lower back with radiation down both of her legs. Denies any loss of bowel/bladder function. Also reports of having history of multiple falls. At this time she is resting in bed and states pain is better controlled. Initially had complained of SOB in the ER and given elevated Ddimer, she had a CTA chest. CTA was negative for PE. b/L LE negative for any clinical signs for DVT. At this time she denies headache, dizziness, sob, chest pain, abd pain, dysuria, n/ v, fever, or chills. She appears to be in no distress and is able to provide detailed history of her diagnosis. Former smoker Currently scheduled to undergo sleep study for DOLORES Past Med Surg Social Fam HX - Past Medical History Medical history: arthritis, GERD, hyperlipidemia, hypertension Psychiatric history: anxiety, depression - Past Surgical History Surgical History: cholecystectomy, hysterectomy, MARTINA/BSO - Social History Smoking Status: Never smoker Smokeless Tobacco Status: No Alcohol use: none Drug use: none - Family History Mother Living Status: Hx Family Cardiac Disorders: No Hx Family Respiratory Disorders: No Hx Family Cancer: Yes (colon cancer) Hx Family GI Disorders: No Hx Family Endocrine Disorder: No Hx Family Neuromuscular Disorders: No Hx Family Neurologic Disorders: No Hx Family HEENT Disorders: No Hx Family Autoimmune Disorders: No Internal Medicine - H&P: Meds Acetaminophen [Tylenol] 500 mg PO Q6HR PRN 06/25/16 [History] Atorvastatin Calcium [Lipitor] 40 mg PO HS 06/25/16 [History] FLUoxetine HCl [Prozac] 40 mg PO BID 06/25/16 [History] Ranitidine HCl [Zantac] 150 mg PO BID PRN 06/25/16 [History] diazePAM [Valium] 10 mg PO BID 06/25/16 [History] Albuterol Sulfate [Proair Hfa] 2 puff IH Q4H PRN 04/06/17 [History] Azelastine HCl [Astepro] 1 spray NS DAILY 04/06/17 [History] Chlorhexidine Gluconate [Peridex] 5 ml MM DAILY 04/06/17 [History] Cholecalciferol (D-3) [Vitamin D] 1,000 unit PO DAILY 04/06/17 [History] Fluticasone Propionate Nasal [Flonase] 100 mcg NS DAILY 04/06/17 [History] HYDROcodone/Acet 5/325 mg [[place] 5-325 mg] 1 tab PO Q6H PRN 04/06/17 [History] Methylphenidate HCl [Ritalin LA] 40 mg PO QAM 04/06/17 [History] Pregabalin [Lyrica] 150 mg PO BID 04/06/17 [History] Docusate [Colace] 100 mg PO BID 04/24/17 [History] Metoprolol XL (24 HR) Succ [Toprol Xl] 25 mg PO DAILY 04/24/17 [History] Bisacodyl [Dulcolax] 10 mg PO DAILY PRN #30 tablet 04/26/17 [Rx] Allergies codeine Allergy (Verified 06/25/16 07:56) Palpitations All Systems PM: A 10-system review of systems was performed and is negative for pertinent findings except as documented above in the HPI. - Constitutional Constitutional: as per HPI - Constitutional Vitals: Temp Pulse Resp BP Pulse Ox 97.5 F L 71 10 101/51 100 05/26/17 00:46 05/26/17 00:46 05/26/17 00:46 05/26/17 00:55 05/26/17 00:46 General appearance: Present: A&O X 3, morbidly obese, no acute distress, answers questions appropriately - Head Head exam: Present: atraumatic, normocephalic - Eye Eye exam: Present: conjuntiva pink, sclera anicteric - Respiratory Respiratory exam: Absent: respiratory distress, wheezes - Cardiovascular Cardiovascular exam: Present: RRR, +S1, +S2. Absent: diastolic murmur, gallop, rubs, systolic murmur - GI/Abdominal GI/Abdominal exam: Present: distended (obese), normal bowel sounds, soft, no peritoneal signs. Absent: tenderness - Extremities Exam Extremities exam: Present: warm, radial pulses palpable and symetrical. Absent : calf tenderness, pedal edema - Back Exam Back exam: Present: normal inspection. Absent: CVA tenderness (L), CVA tenderness (R), vertebral tenderness - Neurological Exam Neurological exam: Present: alert, oriented X3, no focal deficits, strengths equal and symetr throughout. Absent: pronater drift, facial droop, speech deficit Internal Med - H&P Results - Labs CBC & Chem 7: 05/25/17 21:15 05/25/17 21:15
[2017-05-26] MEDS ORDERED: 0.9 % Sodium Chloride 250 ML IVC PRN (01:30)
[2017-05-26] MEDS ORDERED: Ipratropium/Albuterol Neb 3 ML IH PRN (01:31)
[2017-05-26] MEDS: *HR* HYDROmorphone (PF) 1 MG/ML SYRINGE IVP PRN ×5 (02:03→20:05)
[2017-05-26 03:28] LABS: Basophils # 0.1 K/mcL (0.0-0.2); Basophils % 0.6 %; Eosinophils # 0.1 K/mcL (0.0-0.6); Eosinophils % 0.6 %; Hematocrit 36.2 % (35.3-44.9); Hemoglobin 11.4 g/dL (11.5-15.4); Immature Granulocytes % 0.6 % (0-4); Lymphocytes % 11.6 %; Mean Corpuscular HGB Conc 31.5 g/dL (31.6-35.5); Mean Corpuscular Volume 92.1 fL (83.0-100.0); Mean Platelet Volume 9.3 fL (9.4-12.4); Monocytes # 0.3 K/mcL (0.0-1.3); Monocytes % 3.3 %; Neutrophils # 6.8 K/mcL (1.6-8.9); Platelet Count 286 K/mcL (140-400); Red Blood Count 3.93 M/mcL (3.82-4.97); Red Cell Distribution Width 13.5 % (11.5-14.5); Segmented Neutrophils % 83.3 %
[2017-05-26 03:41] LABS: BUN/Creatinine Ratio 19 (6-26); Blood Urea Nitrogen 16 mg/dL (7-20); Calcium 9.7 mg/dL (8.6-10.8); Carbon Dioxide 26 mEq/L (19-29); Chloride 106 mEq/L (98-109); Glucose 123 mg/dL (70-99); Magnesium 2.1 mg/dL (1.6-2.6); Osmolality,Calculated 295 (280-300); Phosphorous 4.3 mg/dL (2.3-4.7); Sodium 141 mEq/L (136-145); eGFR For African Americans > 60 (> 60); eGFR For Non-African Americans > 60 (> 60)
[2017-05-26] MEDS: *HR* Heparin 5,000 UNIT/ML VIAL SQ SCH ×3 (05:55→21:22)
[2017-05-26] MEDS ORDERED: Famotidine 20 MG TABLET PO PRN (08:27)
--- NOTE | 2017-05-26 11:24 | Electrocardiograph Report ---
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
[2017-05-26] MEDS: 0.9 % Sodium Chloride 1,000 ML IVC SCH ×2 (12:10→21:24)
[2017-05-26] MEDS: Fluticasone Propionate Nasal 50 MCG/SPRAY BOTTLE NS SCH ×2 (12:10→20:10)
[2017-05-26] MEDS: FLUoxetine 20 MG CAPSULE PO SCH (12:11)
[2017-05-26] MEDS: diazePAM 10 MG TABLET PO SCH ×2 (12:12→20:04)
[2017-05-26] MEDS: Pregabalin 75 MG CAPSULE PO SCH ×2 (12:12→20:04)
[2017-05-26] MEDS: Methylphenidate HCl 10 MG TABLET PO SCH (12:12)
[2017-05-26] MEDS: Metoprolol XL (24 HR) Succ 25 MG TAB.ER.24H PO SCH (12:12)
--- NOTE | 2017-05-26 18:02 | Event Note ---
Date of Encounter: 05/26/17 Time of Encounter: 14:00 Patient seen and examined. On examination, patient sitting upright in bed. Patient complaining of severe back pain radiating to her bilateral groin areas and down into her toes. She is also endorsing leg spasms and low back pain all the way up to her neck. Patient is also endorsing dysuria. Abnormal urinalysis noted-ceftriaxone initiated. Patient saw urologist Dr. Forrester yesterday who turned her bladder stem back on. She was admitted for dehydration and required a lot of IV fluids and during that time, she was unable to void so her bladder stem was turned off at that time. Was turned back on yesterday and since that time, patient states that she has had cramping to her lower abdomen likely consistent with bladder spasms given that she is status post total hysterectomy. Dr. Forrester will see her in consultation tomorrow. Chest x-ray negative. Plain films of lumbar and thoracic spines negative. CTA negative. Elevated [place] of 1367 noted of uncertain etiology. We will treat with IV fluids and continue to investigate. Patient stating that she does follow a strict diet that is occluded, dairy free, sugar free, caffeine free, and fat-free. She states that she has been on this diet for approximately one year and has lost 63 pounds. Concern for possible malnutrition and possible subsequent rhabdo-nutrition has been brought on board. She is also followed at pain management clinic-they have also been brought on board. Patient is also endorsing generalized weakness so OT and PT consultations have been ordered. [facility] report only revealing current prescriptions for diazepam and Lyrica. On examination, patient is alert and oriented 3 and complaining of severe pain with several different complaints at this time. She complains of back pain, neck pain, groin pain, leg pain, foot pain, leg spasms, lower abdomen spasms, and dysuria. We will continue to investigate her elevated CK level and possible myopathies. I spoke to her pain management Dr. Song who will see her in his office the day she is discharged to set her up for more outpatient testing. ITS Impressions Chest X-Ray 05/25/17 21:01 IMPRESSION: No acute process. D/ / Kamlesh Raphael MD / Kamlesh Raphael MD Interpreting Provider: Kamlesh Raphael MD Lumbar Spine X-Ray 05/25/17 21:03 IMPRESSION: Thoracic spine: Minimal multilevel degenerative change. No acute abnormality. Lumbar spine: Multilevel degenerative change with degenerative anterolisthesis of L5 on S1. No acute abnormality. D/ / Dontae Reveles MD / Dontae Reveles MD Interpreting Provider: Dontae Reveles MD Thoracic Spine X-Ray 05/25/17 21:04 IMPRESSION: Thoracic spine: Minimal multilevel degenerative change. No acute abnormality. Lumbar spine: Multilevel degenerative change with degenerative anterolisthesis of L5 on S1. No acute abnormality. D/ / Dontae Reveles MD / Dontae Reveles MD Interpreting Provider: Dontae Reveles MD Chest CTA 05/25/17 22:17 IMPRESSION: No evidence of pulmonary embolism or acute pulmonary abnormality. D/ / Ranulfo Randle MD / Ranulfo Randle MD Interpreting Provider: Ranulfo Randle MD
[2017-05-26] MEDS ORDERED: *HR* HYDROcodone/Acet 5/325 mg TABLET PO PRN (18:13)
[2017-05-26] MEDS ORDERED: Acetaminophen 325 MG TABLET PO PRN (18:13)
[2017-05-26] MEDS: Beclomethasone 80mcg MDI IH SCH (22:35)
[2017-05-27 04:36] LABS: Basophils % 0.2 %; Eosinophils % 0.3 %; Hematocrit 32.4 % (35.3-44.9); Hemoglobin 10.3 g/dL (11.5-15.4); Immature Granulocytes % 0.3 % (0-4); Lymphocytes # 1.4 K/mcL (0.6-4.6); Lymphocytes % 21.3 %; Mean Corpuscular HGB Conc 31.8 g/dL (31.6-35.5); Mean Corpuscular Hemoglobin 29.6 pg (28.0-33.3); Mean Corpuscular Volume 93.1 fL (83.0-100.0); Mean Platelet Volume 10.1 fL (9.4-12.4); Monocytes # 0.5 K/mcL (0.0-1.3); Monocytes % 7.5 %; Neutrophils # 4.7 K/mcL (1.6-8.9); Platelet Count 252 K/mcL (140-400); Red Blood Count 3.48 M/mcL (3.82-4.97); Red Cell Distribution Width 13.4 % (11.5-14.5); Segmented Neutrophils % 70.4 %
[2017-05-27 04:58] LABS: BUN/Creatinine Ratio 24 (6-26); Blood Urea Nitrogen 16 mg/dL (7-20); Calcium 9.8 mg/dL (8.6-10.8); Carbon Dioxide 27 mEq/L (19-29); Chloride 109 mEq/L (98-109); Creatine Kinase 455 Units/L (29-168); Glucose 96 mg/dL (70-99); Osmolality,Calculated 295 (280-300); Potassium 3.8 mEq/L (3.5-4.5); Sodium 142 mEq/L (136-145); eGFR For African Americans > 60 (> 60); eGFR For Non-African Americans > 60 (> 60)
[2017-05-27 05:20] LABS: Thyroid Stimulating Hormone 0.272 mcIU/mL (0.350-4.840)
[2017-05-27] MEDS: *HR* Heparin 5,000 UNIT/ML VIAL SQ SCH (05:56)
--- NOTE | 2017-05-27 07:12 | Urology Progress Note ---
Date of Encounter: 05/27/17 Time of Encounter: 07:10 - Assessment and Plan (1) Intractable low back pain Current Visit: Yes Status: Acute Assessment and plan: I do not feel that turning the InterStim device off will improve her current pain. She does not want to turn the device off. She expressed that an MRI may be necessary to properly evaluate the etiology for her back pain. We discussed that she is unable to have an MRI of her lower back with the InterStim device in place. It is safe to have an MRI of the head and neck if necessary. If her severe back pain continues and her managing physicians feel that there is no other options other than obtaining an MRI, I can remove the device on an outpatient basis. In some patients, it can be replaced after all non-urologic issues resolve. I did discuss with the patient that I will be reluctant to replace the device secondary to her multiple ailments over the last year. Progress Note Subjective: still having pain Narrative: Patient well known to the urology service. history of multiple complaints and ailments. History of urinary urgency, frequency, fecal incontinence. InterStim placed last year which has helped resolve the symptoms significantly. Currently admitted with back pain. Patient concerned she has multiple sclerosis. InterStim device was turned back on this week and she states is already starting to help with her fecal incontinence. She states she does not think the InterStim is causing her pain as it was present prior to turning the device on Objective Initial Vital Signs Temp Pulse Resp BP Pulse Ox 98.3 F 81 20 125/84 97 05/25/17 19:45 05/25/17 19:45 05/25/17 19:45 05/25/17 19:45 05/25/17 19:45 - General physical appearance Present: no distress - Abdomen Present: soft - Labs 05/27/17 03:38 05/27/17 03:38 Diabetes panel 05/27/17 Range/Units 03:38 Sodium 142 (136-145) mEq/L Potassium 3.8 (3.5-4.5) mEq/L Chloride 109 (98-109) mEq/L Carbon Dioxide 27 (19-29) mEq/L BUN 16 (7-20) mg/dL Creatinine 0.68 (0.57-1.11) mg/dL Glucose 96 (70-99) mg/dL Calcium 9.8 (8.6-10.8) mg/dL Thyroid panel 05/27/17 Range/Units 03:38 TSH 0.272 L (0.350-4.840) mcIU/mL Calcium panel 05/27/17 Range/Units 03:38 Calcium 9.8 (8.6-10.8) mg/dL Pituitary panel 05/27/17 Range/Units 03:38 Sodium 142 (136-145) mEq/L Potassium 3.8 (3.5-4.5) mEq/L Chloride 109 (98-109) mEq/L Carbon Dioxide 27 (19-29) mEq/L BUN 16 (7-20) mg/dL Creatinine 0.68 (0.57-1.11) mg/dL Glucose 96 (70-99) mg/dL Calcium 9.8 (8.6-10.8) mg/dL TSH 0.272 L (0.350-4.840) mcIU/mL Adrenal panel 05/27/17 Range/Units 03:38 Sodium 142 (136-145) mEq/L Potassium 3.8 (3.5-4.5) mEq/L Chloride 109 (98-109) mEq/L Carbon Dioxide 27 (19-29) mEq/L BUN 16 (7-20) mg/dL Creatinine 0.68 (0.57-1.11) mg/dL Glucose 96 (70-99) mg/dL Calcium 9.8 (8.6-10.8) mg/dL Consult Discharge Plan - Plan Referrals: Corrina Howard MD [Primary Care Provider] - Thien Forrester MD [Partnered Physician] -
[2017-05-27] MEDS: Fluticasone Propionate Nasal 50 MCG/SPRAY BOTTLE NS SCH (08:11)
[2017-05-27] MEDS: 0.9 % Sodium Chloride 1,000 ML IVC SCH (08:11)
[2017-05-27] MEDS: Pregabalin 75 MG CAPSULE PO SCH (08:12)
[2017-05-27] MEDS: FLUoxetine 20 MG CAPSULE PO SCH (08:15)
[2017-05-27] MEDS: Methylphenidate HCl 10 MG TABLET PO SCH (08:15)
[2017-05-27] MEDS: Metoprolol XL (24 HR) Succ 25 MG TAB.ER.24H PO SCH (08:16)
[2017-05-27] MEDS: diazePAM 10 MG TABLET PO SCH (08:16)
[2017-05-27] MEDS: Beclomethasone 80mcg MDI IH SCH (08:40)
[2017-05-27] MEDS ORDERED: amLODIPine 5 MG TABLET PO SCH (09:00)
[2017-05-27 10:47] VITALS: BP 134/75
[2017-05-27 11:04] LABS: Triiodothyronine (T3) Free 2.27 pg/mL (1.71-3.71)
--- NOTE | 2017-05-27 12:04 | Discharge Summary ---
Date of Encounter: 05/27/17 Time of Encounter: 10:00 - Discharge Diagnosis (1) Elevated creatine kinase level Priority: Primary Status: Acute Comments: improved greatly overnight. unclear causation- could be 2/2 her strict diet over the past year. Following up outpatient with her pain management doctor for further evaluation of possible myopathies. (2) Abdominal pain Priority: Secondary Status: Chronic Comments: no new symptoms; UTI ruled out. tolerated a regular diet while admitted. Follow-up outpatient. Qualifiers: Abdominal location: epigastric Qualified Code(s): R10.13 - Epigastric pain (3) History of hiatal hernia Priority: Secondary Status: Chronic (4) Essential hypertension Priority: Secondary Status: Chronic Comments: Controlled, follow-up outpatient. Was hypotensive at times while admitted, likely secondary to pain medications, normotensive on day of discharge. (5) Dysphagia Priority: Secondary Status: Chronic Comments: Tolerated a regular diet while admitted Qualifiers: Dysphagia type: unspecified Qualified Code(s): R13.10 - Dysphagia, unspecified (6) GERD (gastroesophageal reflux disease) Priority: Secondary Status: Chronic Qualifiers: Esophagitis presence: without esophagitis Qualified Code(s): K21.9 - Gastro -esophageal reflux disease without esophagitis (7) Depression with anxiety Priority: Secondary Status: Chronic (8) Chronic back pain Priority: Secondary Status: Chronic Comments: Spoke to her pain management doctor Dr. Song-she is headed there today for an appointment immediately after discharge. (9) Elevated d-dimer Priority: Primary Status: Ruled-out Comments: CTA ruled out a PE (10) Degenerative joint disease (DJD) of lumbar spine Priority: Secondary Status: Chronic Qualifiers: Spinal osteoarthritis complication: unspecified spinal osteoarthritis Qualified Code(s): M47.816 - Spondylosis without myelopathy or radiculopathy, lumbar region (11) Degenerative joint disease of thoracic spine Priority: Secondary Status: Chronic (12) History of UTI Priority: Primary Status: Ruled-out Comments: Urine culture negative (13) DVT prophylaxis Priority: Primary Status: Acute Comments: Subcutaneous heparin while admitted (14) Intractable low back pain Priority: Secondary Status: Chronic - Discharge Medications Home Medications: Acetaminophen [Tylenol] 500 mg PO Q6HR PRN 06/25/16 [History] Atorvastatin Calcium [Lipitor] 40 mg PO HS 06/25/16 [History] FLUoxetine HCl [Prozac] 80 mg PO DAILY 06/25/16 [History] Ranitidine HCl [Zantac] 150 mg PO BID PRN 06/25/16 [History] diazePAM [Valium] 10 mg PO BID 06/25/16 [History] Albuterol Sulfate [Proair Hfa] 2 puff IH Q4H PRN 04/06/17 [History] Azelastine HCl [Astepro] 1 spray NS BID 04/06/17 [History] Chlorhexidine Gluconate [Peridex] 5 ml MM DAILY 04/06/17 [History] Cholecalciferol (D-3) [Vitamin D] 1,000 unit PO DAILY 04/06/17 [History] Fluticasone Propionate Nasal [Flonase] 50 mcg NS BID 04/06/17 [History] Methylphenidate HCl [Ritalin LA] 20 mg PO QAM 04/06/17 [History] Pregabalin [Lyrica] 150 mg PO BID 04/06/17 [History] Docusate [Colace] 100 mg PO BID PRN 04/24/17 [History] Metoprolol XL (24 HR) Succ [Toprol Xl] 25 mg PO DAILY 04/24/17 [History] Bisacodyl [Dulcolax] 10 mg PO DAILY PRN #30 tablet 04/26/17 [Rx] Amlodipine Besylate 10 mg PO DAILY 05/26/17 [History] Fluticasone Propionate [Flovent Hfa] 2 puff IH BID 05/26/17 [History] Omeprazole [PriLOSEC] 40 mg PO BID 05/26/17 [History] Allergies/Adverse Reactions: Allergies codeine Allergy (Verified 06/25/16 07:56) Palpitations Date of admission: 05/25/17 23:43 Primary care physician: Corrina Howard, Consults: 05/26/17 11:28 Consult to Building Drafting Officer [CONS] Routine Reason for SW Consult: Readmission 05/26/17 11:34 Consult to Nutrition [CONS] Routine Comment: Consulting Provider: NUTRITION Reason for Dietary Consult: Diet Education Consult to Occupational Therapy [CONS] Routine Comment: Evaluate, develop and implement POC Reason for Consult: Evaluation Consult to Physical Therapy [CONS] Routine Comment: Evaluate, develop and implement POC Reason for Consult: Evaluation 05/26/17 18:12 Consult to Urology [CONS] Routine Consulting Provider: Shylay Luann Reason for Consult: bladder stimulator turned back on yesterday- now with spasms. Dr Forrester aware and will see in am. Time Notified: 18:12 Call Completed: Yes Discharging clinician: Donna Bernal Anticipated date of discharge: 05/27/17 - Patient Status Disposition: Home, Self-Care Condition: Fair Functional capacity at discharge: independent ambulation Overall status at discharge: patient is progressing back to baseline - Discharge Instructions Follow Up With: Corrina Howard MD [Primary Care Provider] - Thien Forrester MD [Partnered Physician] - Glen Song DO [Partnered Physician] - Additional Instructions: Follow-up with primary care provider within one to 2 weeks. Follow-up with urologist as needed. Follow up with pain management immediately after discharge -go straight to his office - Diet and Activity Activity: increase activity as tolerated Diet: low fat, low cholesterol, low salt diet Hospital course: Ms. Champagne is a 57 year old female with past medical history of hypertension, GERD, hyperlipidemia, chronic back pain, neurogenic bladder status post bladder stem implant. Patient presented to the emergency department chief complaint of severe low back pain. On the day of presentation, patient had appointments with her primary care provider, her urologist, and her pain specialist and she states that due to those 3 appointments, she had missed some of her home medications and her pain then became unbearable to her lower back which prompted her presentation to the emergency department. Her pain management had recommended she present to the emergency department. The patient complained of pain to her lower back with radiation down both of her legs. She denied any loss of bowel or bladder function. Workup in the emergency department revealing a mildly elevated d-dimer so CTA was performed which ruled out a PE. Chest x-ray negative. Plain films of lumbar and thoracic spines both unremarkable for acute processes. Patient was admitted to the hospitalist service for further evaluation and management. During her last admission, patient had received a lot of IV fluids and was unable to void, so her bladder stimulator was turned off. It was turned on by her urologist on the day of presentation. Urology was brought on board during this admission who surmised her bladder stem was not likely to be the source of her pain. Of note, she was unable to obtain an MRI secondary to the bladder stim implant. Per her urologist, if the patient is requiring an MRI of her lumbar spine, her bladder stim will have to be taken out and is not likely to be replaced. She has declined removal of her implant at this time. She had an abnormal urinalysis however the urine culture was negative so antibiotics were stopped. No leukocytosis or other indicators of an acute infection. Also of note, her CK levels were elevated to nearly 1400 of unclear etiology. Decreased down to around 500 overnight with IV fluids. Patient stating that she does follow a strict diet that is gluten free, dairy free, sugar free, caffeine free, and fat- free. She states that she has been on this diet for approximately one year and has lost 63 pounds. Concern for possible malnutrition and possible rhabdo secondary to poor nutritional intake and subsequent muscle breakdown so nutrition was been brought on board. Nutrition recommended that she stop that meal plan and suggested she try Ensure drinks. As she is followed by pain management doctor Nohemi, he was consulted. He cleared her for outpatient follow-up on the day of discharge. Patient also endorsed generalized weakness and she was evaluated by physical therapy who recommended outpatient physical therapy that will need to be set up by her primary care team. During this admission, the patient's chief complaint and chief source of pain rotated and varied greatly throughout her short one night stay. At different times during this admission, her chief complaints were of back pain, neck pain, groin pain, leg pain, foot pain, leg spasms, lower abdomen spasms, and dysuria. She was able to tolerate a regular diet while admitted. Patient's pain had improved on day of discharge and she was requesting narcotics and muscle relaxers to take home with her. She states that she is now unemployed and was requesting these medications. [facility] report only revealing current prescriptions for diazepam and Lyrica. Recommend continued investigation into her elevated CK level and possible myopathies. I spoke to her pain management Dr. Song who will see her in his office the day she is discharged to set her up for more outpatient testing and he states that he will prescribe pain medication at his discretion at that time. No pain medication or muscle relaxers were prescribed at discharge as the patient was sent directly to her pain management doctor at the time of discharge. She was discharged home in stable condition with close outpatient follow-up recommended. ITS Impressions Chest X-Ray 05/25/17 21:01 IMPRESSION: No acute process. D/ / Kamlesh Raphael MD / Kamlesh Raphael MD Interpreting Provider: Kamlesh Raphael MD Lumbar Spine X-Ray 05/25/17 21:03 IMPRESSION: Thoracic spine: Minimal multilevel degenerative change. No acute abnormality. Lumbar spine: Multilevel degenerative change with degenerative anterolisthesis of L5 on S1. No acute abnormality. D/ / Dontae Reveles MD / Dontae Reveles MD Interpreting Provider: Dontae Reveles MD Thoracic Spine X-Ray 05/25/17 21:04 IMPRESSION: Thoracic spine: Minimal multilevel degenerative change. No acute abnormality. Lumbar spine: Multilevel degenerative change with degenerative anterolisthesis of L5 on S1. No acute abnormality. D/ / Dontae Reveles MD / Dontae Reveles MD Interpreting Provider: Dontae Reveles MD Chest CTA 05/25/17 22:17 IMPRESSION: No evidence of pulmonary embolism or acute pulmonary abnormality. D/ / Ranulfo Randle MD / Ranulfo Randle MD Interpreting Provider: Ranulfo Randle MD - Time Spent with Patient Total time spent providing and/or coordinating discharge services: - Constitutional Vitals: Temp Pulse Resp BP Pulse Ox 98.0 F 81 20 134/75 97 05/27/17 10:43 05/27/17 10:43 05/27/17 10:43 05/27/17 10:43 05/27/17 10:43 General appearance: Present: A&O X 3, morbidly obese, no acute distress, answers questions appropriately - Head Head exam: Present: atraumatic, normocephalic - Eye Eye exam: Present: PERRL, conjuntiva pink, sclera anicteric Pupils: Present: PERRL - Neck Neck exam general surgery: Present: supple, trachea midline. Absent: lymphadenopathy - Respiratory Respiratory exam: Present: CTAB. Absent: accessory muscle use, rales, respiratory distress, rhonchi, wheezes - Cardiovascular Cardiovascular exam: Present: RRR, +S1, +S2. Absent: diastolic murmur, gallop, rubs, systolic murmur - GI/Abdominal GI/Abdominal exam: Present: normal bowel sounds, soft, no peritoneal signs. Absent: distended, tenderness - Extremities Exam Extremities exam: Present: warm, radial pulses palpable and symetrical. Absent : calf tenderness, cyanotic, pedal edema - Back Exam Back exam: Present: paraspinal tenderness, tenderness - Neurological Exam Neurological exam: Present: alert, CN II-XII intact, oriented X3, no focal deficits, strengths equal and symetr throughout. Absent: pronater drift, facial droop, speech deficit - Skin Skin exam: Present: dry, intact, normal color, warm
== END 2017-05-27 15:30 | disposition home or self-care (01) ==
LOC: EMEROO 19:35 → 3BNU 19:35
PROVIDERS: ADMIT Internal Medicine; ATTEND Nurse Practitioner Family